=== PATIENT | male | born 1980 | race Caucasian/White ===

== ENCOUNTER 2020-07-18 16:58 | Emergency (ER) | payer SELFPAY ==
[2020-07-18 17:09] VITALS: BP 126/81; PULSE 108; RESP 22; TEMP 37.7; O2SAT 97; BMI 58.8
--- NOTE | 2020-07-18 17:13 | XR_ITS ---
EXAMINATION: CHEST 1 VIEW CLINICAL INFORMATION: Cough and fever. COMPARISON: January 07, 2019. TECHNIQUE: An AP view of the chest is provided. FINDINGS: The cardiac silhouette is not enlarged. The mediastinal and hilar contours are unremarkable. There are neither pleural effusions nor pneumothoraces. There are no consolidations. The osseous structures are stable. XR/XR chest 1V IMPRESSION: No evidence for acute disease.
--- NOTE | 2020-07-18 17:13 | CT_ITS ---
EXAMINATIONS: CT HEAD WITHOUT CONTRAST AND CT CERVICAL SPINE WITHOUT CONTRAST CLINICAL INFORMATION: Drug overdose. Trauma. COMPARISON: July 14, 2019. TECHNIQUE: Contiguous helical images of the brain were obtained without IV contrast. Contiguous helical images of the cervical spine were obtained without IV contrast. Multiplanar reconstructions were performed. DLP: 1285 mGy-cm. FINDINGS: There are no pathologic extra-axial fluid collections. The lateral, third, fourth ventricles are nondilated and concordant with the appearance of the sulci. There is no evidence for acute intraparenchymal hemorrhage or infarct. There is neither mass nor mass effect. There is no shift of midline structures. The paranasal sinuses and mastoid air cells are clear. There are no osseous lesions. The cervical vertebra are in normal alignment. Disc heights and vertebral heights are well-preserved. There are no fractures. There is no prevertebral soft tissue swelling. There is no cervical lymphadenopathy. The visualized lung apices are clear. CT/CT cervical spine wo con IMPRESSION: No evidence for acute intracranial injury. No evidence for acute injury to the cervical spine. Automated exposure control (Care Dose) Adjustment of the mA and/or kv according to patient size (this includes techniques or standardized protocols for targeted exams where dose is matched to indication / reason for exam; i.e. extremities or head).
[2020-07-18 19:48] LABS: SARS COV2 PCR INHOUSE NEGATIVE (Negative)
[2020-07-18 20:05] VITALS: BP 129/60; PULSE 106; RESP 25; O2SAT 93
--- NOTE | 2020-07-18 20:51 | PC.NURSE ---
patient woken up and changed over into a kelsie. patient diaphoretic and complaining of right knee pain. knee appears swollen and warm to touch. patient also has an abrasion of his right forehead. temp 100.1. md made aware. patient given small snack. respiratory rate equal and unlabored.
--- NOTE | 2020-07-18 21:10 | XR_ITS ---
EXAMINATION: XR KNEE, LEFT CLINICAL INFORMATION: Fall and pain. COMPARISON: None TECHNIQUE: Four views of the left knee. FINDINGS: There is mild loss of tricompartment joint space with periarticular spurring. There are no loose body seen. There is no bony erosive changes. There is mild suprapatellar joint effusion. XR/XR knee LT 4V IMPRESSION: Moderate to severe degenerative changes in the left knee without acute fracture or dislocation.
--- NOTE | 2020-07-18 21:17 | ED_ITS ---
HPI - Overdose General Chief Complaint: Overdose <Jagruti Yuan MD - Last Filed: 07/18/20 23:41> Stated Complaint: overdose <Jagruti Yuan MD - Last Filed: 07/18/20 23:41> Time Seen by Provider: 07/18/20 17:13 <Jagruti Yuan MD - Last Filed: 07/18/20 23:41> Source: patient <Jagruti Yuan MD - Last Filed: 07/18/20 23:41> Mode of arrival: EMS <Jagruti Yuan MD - Last Filed: 07/18/20 23:41> Limitations: no limitations <Jagruti Yuan MD - Last Filed: 07/18/20 23:41> History of Present Illness HPI Narrative: 39-year-old male who admitted to use 3 bags of heroin today, patient fell and witnessed by bystander patient was given total of 12 mg of Narcan patient started to regain consciousness. Patient was witnessed falling hitting his head complaining of slight headache and neck pain and left knee pain, patient also found have low-grade fever but patient declined any other symptoms, no SI or HI. Patient admitted using heroin to get high. <Jagruti Yuan MD - Last Filed: 07/18/20 23:41> complaint: accidental overdose <Jagruti Yuan MD - Last Filed: 07/18/20 23:41> Onset (ago): hour(s) (2) <Jagruti Yuan MD - Last Filed: 07/18/20 23:41> Related Data Allergies/Adverse Reactions: Allergies Allergy/AdvReac Type Severity Reaction Status Date / Time No Known Drug Allergies Allergy Mild NONE Unverified 06/13/20 15:37 [NO KNOWN DRUG ALLERGIES] <Jagruti Yuan MD - Last Filed: 07/18/20 23:41> Review of Systems Review of Systems: all other systems are reviewed and are negative Constitutional: Reports as per HPI and Reports no additional constitutional complaints Eyes: Reports as per HPI and Reports no additional eye complaints Reports system reviewed and no additional complaints, except as documented Cardiovascular: Reports as per HPI and Reports no additional cardiovascular complaints Respiratory: Reports as per HPI and Reports no additional respiratory complaints Gastrointestinal: Reports as per HPI and Reports no additional gastrointestinal complaints Genitourinary: Reports no additional female genitourinary complaints Musculoskeletal: Reports no additional musculoskeletal complaints Skin/Breast: Reports system reviewed and no additional complaints, except as docu Psychiatric: Reports no additional psychiatric complaints Endocrine: Reports no additional endocrine complaints Hematologic/Lymphatic: Reports no additional hematologic/lymphatic complaints Allergic/Immunologic: Reports no additional allergic/immunologic complaints Reports system reviewed and no additional complaints, except as documented and Reports Abnormal speech present <Jagruti Yuan MD - Last Filed: 07/18/20 23:41> [facility] Social History Social History: Social History Alcohol intake: never Smoking Status: Current every day smoker Smoked in Last 30 Days: No Use of substances other than those prescribed or required for medical reasons: Yes Substance Use Type: Heroin Substance Use Frequency: Daily Last Used Substance: Just Prior to Admission Any prior treatment program specific to substance use: No Advance Directives: No Advance Directives Information Provided: No <Jagruti Yuan MD - Last Filed: 07/18/20 23:41> Physical Exam Vital Signs: Vital Signs: Vital Signs Temp Pulse Resp BP Pulse Ox 07/19/20 09:06 78 18 129/54 L 98 07/19/20 06:43 97.0 F 78 17 91/44 L 97 07/18/20 22:00 88 10 L 103/58 L 98 07/18/20 20:05 106 H 25 H 129/60 93 Body Mass Index 58.8 vital signs have been reviewed as normal and appeared to be correct. Blood pressure normal. tachycardia. Respiration rate normal. Temperature normal. Oxygen saturation normal. <Jagruti Yuan MD - Last Filed: 07/18/20 23:41> Vital Signs: Vital Signs Temp Pulse Resp BP Pulse Ox 07/19/20 09:06 78 18 129/54 L 98 07/19/20 06:43 97.0 F 78 17 91/44 L 97 07/18/20 22:00 88 10 L 103/58 L 98 07/18/20 20:05 106 H 25 H 129/60 93 Body Mass Index 58.8 <BRIAN Villafuerte - Last Filed: 07/19/20 17:57> Appearance: Alert. Oriented X3. No acute distress. Head: Normal external exam. small superficial abrasion on the forehead. No Boo signs noted. No raccoon eyes noted Eyes: PERRLA. EOMI. Conjunctiva and sclera normal. Eyelids normal. ENT: EAC normal. TM's Normal. Pharynx normal. Uvula midline. Moist mucous membranes. No trismus noted. No drooling noted. No muffled voice noted. Neck: Normal inspection. Neck supple. FROM. No adenopathy. Thyroid Normal. No meningeal signs. No neck mass noted. CVS: Normal heart rate and rhythm. Heart sound normal. No murmurs noted. Pulses normal throughout. Respiratory: No respiratory distress. Painless inspiration. Breath sounds normal. No wheezes/rales/rhonchi noted. Chest nontender. No accessory muscle usage noted or decreased air movement noted. Abdomen: Soft and nontender. Bowel sounds normal in all 4 quadrants. No distention noted. No organomegaly noted. No visible injury noted. Back: No CVA tenderness. Full range of motion noted. Skin: Skin warm and dry. Normal skin color. Normal skin turgor. No rashes/lesions/lacerations noted. Extremities: No lower extremity edema. Extremities exhibit normal range of motion. Extremities nontender. Neuro: Oriented X 3. No motor deficit. No sensory deficit. Reflexes normal. GCS of 15 <Jagruti Yuan MD - Last Filed: 07/18/20 23:41> Course Course Course Narrative: accidental overdose on heroin, with mechanical fall, require multiple doses of Narcan at the scene, now is awake with stable vital sign, complained of head and neck and right knee pain, patient found to have low-grade fever but no other complain will test for COVID. <Jagruti Yuan MD - Last Filed: 07/18/20 23:41> Patient is awaiting [facility] evaluation. Patient is not in any distress. <BRIAN Villafuerte - Last Filed: 07/19/20 17:57> MDM - Overdose MDM Narrative Medical decision making narrative: 39-year-old male with incidental overdose of heroin found in the street after he had a mechanical fall, Head/C-spine CT are unremarkable. Right knee x-ray is unremarkable, no symptoms explain low-grade fever of the patient with negative COVID test. Will discharge the patient. <Jagruti Yuan MD - Last Filed: 07/18/20 23:41> Lab Data Labs: Lab Results 07/18/20 07/19/20 Range/Units 18:37 02:19 Urine Opiates Screen POSITIVE H (Not Detect) Ur Barbiturates Screen Not Detected (Not Detect) Ur Phencyclidine Scrn Not Detected (Not Detect) Ur Amphetamines Screen Not Detected (Not Detect) U Benzodiazepines Scrn Not Detected (Not Detect) Urine Cocaine Screen POSITIVE H (Not Detect) U Marijuana (THC) Screen POSITIVE H (Not Detect) Coronavirus (PCR) NEGATIVE (Negative) <Jagruti Yuan MD - Last Filed: 07/18/20 23:41> Lab Results 07/18/20 07/19/20 Range/Units 18:37 02:19 Urine Opiates Screen POSITIVE H (Not Detect) Ur Barbiturates Screen Not Detected (Not Detect) Ur Phencyclidine Scrn Not Detected (Not Detect) Ur Amphetamines Screen Not Detected (Not Detect) U Benzodiazepines Scrn Not Detected (Not Detect) Urine Cocaine Screen POSITIVE H (Not Detect) U Marijuana (THC) Screen POSITIVE H (Not Detect) Coronavirus (PCR) NEGATIVE (Negative) <BRIAN Villafuerte - Last Filed: 07/19/20 17:57> Imaging Data left knee x-ray: Radiologist's impression: Moderate to severe degenerative changes in the left knee without acute fracture or dislocation. <Jagruti Yuan MD - Last Filed: 07/18/20 23:41> CT head/ CT C-spine: Radiologist's impression: No evidence for acute intracranial injury. No evidence for acute injury to the cervical spine. <Jagruti Yuan MD - Last Filed: 07/18/20 23:41> Chest x-ray: Radiologist's impression: No evidence for acute disease. <Jagruti Yuan MD - Last Filed: 07/18/20 23:41> Discharge Plan Discharge Clinical Impression: Drug overdose Qualifiers: Encounter type: initial encounter Injury intent: accidental or unintentional Qualified Code(s): T50.901A - Poisoning by unspecified drugs, medicaments and biological substances, accidental (unintentional), initial encounter Contusion of knee Qualifiers: Encounter type: initial encounter Laterality: left Qualified Code(s): S80.02XA - Contusion of left knee, initial encounter Head injury Qualifiers: Encounter type: initial encounter Qualified Code(s): S09.90XA - Unspecified injury of head, initial encounter <Jagruti Yuan MD - Last Filed: 07/18/20 23:41> Patient Disposition: Home, Self-Care <Jagruti Yuan MD - Last Filed: 07/18/20 23:41> Instructions: Head Injury (ED), Adult Overdose (ED) <Jagruti Yuan MD - Last Filed: 07/18/20 23:41> Referrals: Physician,Unknown [Primary Care Provider] - 2 days <Jagruti Yuan MD - Last Filed: 07/18/20 23:41>
[2020-07-18] MEDS: Acetaminophen 325 MG TABLET 650 MG PO (21:29)
[2020-07-18 22:00] VITALS: BP 103/58; PULSE 88; RESP 10; O2SAT 98
[2020-07-19] MEDS: Ibuprofen 600 MG TABLET PO (02:24)
[2020-07-19 02:59] LABS: Amphetamine Screen Urine Not Detected (Not Detect); Barbiturates, Urine Not Detected (Not Detect); Benzodiazepines Screen Urine Not Detected (Not Detect); Cannabinoid Screen Urine POSITIVE (Not Detect); Cocaine Screen Urine POSITIVE (Not Detect); Opiate Screen Urine POSITIVE (Not Detect); Phencyclidine Screen Urine Not Detected (Not Detect)
[2020-07-19 06:43] VITALS: BP 91/44; PULSE 78; RESP 17; TEMP 36.1; O2SAT 97
--- NOTE | 2020-07-19 07:01 | PC.NURSE ---
pt sitting up in bed, asking this rn to change channel for him, asking for pudding. pt offered breakfast tray instead. eating at bedside table.
[2020-07-19 09:06] VITALS: BP 129/54; PULSE 78; RESP 18; O2SAT 98
--- NOTE | 2020-07-19 10:42 | MHC.CARE ---
Addiction Consult Service note: Patient is a 39 year old Filipino speaking male who presented to [facility] ED after an accidental overdose. While in the Emergency Department, patient reported SI. Patient is currently awaiting a [facility] evaluation. Patient is currently uninsured and homeless. Patient reports that he is knowledgeable regarding community resources. Patient reports he has Methadone and Suboxone don't work for him. Patient reports his homelessness is his biggest problem at this time. Patient provided with information on financial counseling at [facility] and [facility] for patient to re-enroll in [facility]. Patient also provided with information on [facility] for housing support.
--- NOTE | 2020-07-19 12:50 | PC.NURSE ---
resting in bed watching tv att, rr even/unlabored. given lunch tray
--- NOTE | 2020-07-19 19:32 | PC.NURSE ---
PT asked about medication history. Stated that he left detention 3 weeks ago, where he was receiving his medications. Since his release he has not been to a pharmacy for medications. [facility] was contacted for med rec.
[2020-07-19] MEDS: Mirtazapine 15 MG TABLET 45 MG PO (20:44)
[2020-07-19] MEDS: levETIRAcetam 1,000 MG TABLET 1000 MG PO (20:45)
--- NOTE | 2020-07-20 07:15 | PC.NURSE ---
Report received from jose cruz Garcia. Pt awake, affect even, no concerns reported.
[2020-07-20 09:22] VITALS: BP 113/50; PULSE 60; RESP 16; TEMP 36.9; O2SAT 98
--- NOTE | 2020-07-20 13:25 | PC.NURSE ---
REEVAL BY N, PLAN IS FOR PT TO CONTINUE TO BE A BEDSEARCH. NEW SEC12 WRITTEN OUT BUT NOT SIGNED AND DATED IF NEEDED.
[2020-07-20 15:57] VITALS: BP 115/64; PULSE 68; RESP 20; TEMP 20; O2SAT 96
--- NOTE | 2020-07-20 17:31 | PC.NURSE ---
Pt awake, asking re: discharge due to LOS. pt aware that he will need re-evaluation by hospital recruiter. Pt affect even, pleasant.
--- NOTE | 2020-07-20 19:31 | PC.NURSE ---
Patient in bed appears sleeping, no distress reported by the patient, per report patient calm and pleasant, not happy with long wait here in ED, process made aware to the patient, respiration +/=/non-labored bilaterally. Will continue to monitor.
[2020-07-20] MEDS: levETIRAcetam 1,000 MG TABLET 1000 MG PO (21:52)
[2020-07-20] MEDS: Mirtazapine 15 MG TABLET 45 MG PO (21:54)
--- NOTE | 2020-07-20 22:15 | PC.NURSE ---
Patient in bed, awake, lying on side, with TV blaring, compliant with HS PO medication even Mirtazapine which patient refused last night. No distress reported by the patient, will continue to monitor.
--- NOTE | 2020-07-21 07:20 | PC.NURSE ---
Report received from MICHAEL Garcia. Pt resting, resp unlabored.
--- NOTE | 2020-07-21 09:29 | PC.NURSE ---
Discovered full urinal in pt room, as well as two water containers filled w/ urine. Pt has hx of doing the same in past. when asked, pt stated 'i was in so much pain' but unclear why he was unable to ambulate to bathroom, as he has been observed ambulating around pod. Asked pt to please use bathroom, or inform staff if he feels unable to do so.
[2020-07-21 17:05] VITALS: BP 131/77; PULSE 69; RESP 18; TEMP 36.4; O2SAT 96
[2020-07-21] MEDS: levETIRAcetam 1,000 MG TABLET 1000 MG PO (20:04)
[2020-07-21] MEDS: Mirtazapine 15 MG TABLET 45 MG PO (20:04)
--- NOTE | 2020-07-22 06:13 | PC.NURSE ---
Patient in bed appears sleeping, patient slept through the night, no issues and concerns, no distress reported, will continue to monitor.
[2020-07-22 06:32] VITALS: BP 122/67; PULSE 71; RESP 16; TEMP 36.9; O2SAT 97
--- NOTE | 2020-07-22 07:12 | PC.NURSE ---
PT SLEEPING IN ROOM AT THIS TIME. RESPIRATIONS EVEN/UNLABORED BILATERALLY. NO SIGN OF DISTRESS NOTED. WILL CONTINUE TO MONITOR.
[2020-07-22 09:11] VITALS: BP 132/79; PULSE 70; TEMP 36.9; O2SAT 99
== END 2020-07-22 11:22 | disposition home or self-care (01) ==
PROVIDERS: Emergency Provider Emergency Medicine
DX: S09.90XA Unspecified injury of head, initial encounter (principal); G44.309 Post-traumatic headache, unspecified, not intractable; M25.562 Pain in left knee; M25.561 Pain in right knee; S80.02XA Contusion of left knee, initial encounter; S80.01XA Contusion of right knee, initial encounter; F11.10 Opioid abuse, uncomplicated; T40.1X1A Poisoning by heroin, accidental (unintentional), initial encounter; Y92.9 Unspecified place or not applicable; Z71.51 Drug abuse counseling and surveillance of drug abuser; F17.200 Nicotine dependence, unspecified, uncomplicated; Z71.6 Tobacco abuse counseling; W18.30XA Fall on same level, unspecified, initial encounter; Y93.9 Activity, unspecified; Z20.828 Contact with and (suspected) exposure to other viral communicable diseases; Z79.899 Other long term (current) drug therapy
CPT/HCPCS: 70450; 71045; 72125; 73564; 80307; 87635; 99285

== ENCOUNTER 2021-07-27 03:49 | Emergency (ER) | payer MEDICAID, SELFPAY ==
--- NOTE | ~2021-07-27 | XR_ITS ---
EXAMINATION: XR CHEST CLINICAL INFORMATION: Trauma COMPARISON: 07/18/2020 TECHNIQUE: Frontal view of the chest was obtained. FINDINGS: The lungs are mildly hypoinflated and appear clear without focal consolidation. No evidence of pneumothorax, pleural effusion, or pulmonary edema. The cardiomediastinal contour is unremarkable. Degenerative changes are noted in the spine. XR/XR chest 1V IMPRESSION: No acute cardiopulmonary findings.
--- NOTE | ~2021-07-27 | XR_ITS ---
EXAMINATION: CR LEFT HAND CLINICAL INFORMATION: Pain. Trauma. COMPARISON: None TECHNIQUE: 4 views of the left hand. FINDINGS: Mild soft tissue swelling is seen over the dorsum of the wrist/fifth metacarpal base. No acute fracture or dislocation is seen. No radiopaque foreign body is noted. 2 mm of negative ulnar variance is noted. XR/XR hand wrist LT IMPRESSION: Mild soft tissue swelling over the dorsum of the wrist and fifth metacarpal base. No acute fracture or dislocation.
--- NOTE | ~2021-07-27 | CT_ITS ---
EXAMINATION: NONCONTRAST HEAD CT NONCONTRAST CERVICAL SPINE CT INDICATION INFORMATION: Trauma COMPARISON: 07/18/2020 TECHNIQUE: Separate noncontrast CT examinations of the head and cervical spine were performed. Coronal head CT images and coronal and sagittal cervical spine images were created at the technologist workstation. DLP: 1802 mGy-cm DOSE LOWERING TECHNIQUES: This CT examination was performed using dose optimization techniques as appropriate, variously including the following: - Automated exposure control - Adjustment of mA and/or kV according to patient size (this includes techniques or standardized protocols for targeted exams were dose is matched to indication/reason for exam; i.e. extremities or head) - Use of iterative reconstruction technique FINDINGS: Head: Limited evaluation in some regions due to motion artifact. There is no evidence of acute intracranial hemorrhage or territorial infarction. No abnormal mass-effect or midline shift is seen. Ibanez to white matter differentiation is well preserved. No extra-axial fluid collections are identified. The ventricles are normal in size. There is no abnormal attenuation within the brain parenchyma. No acute fracture is seen. There is some inferior frontal scalp soft tissue swelling. There is moderate opacification of the bilateral maxillary sinuses and ethmoid air cells. Cervical spine: There is anatomic alignment of the vertebral bodies and posterior elements. Vertebral body heights are maintained. Intervertebral disc spaces are preserved. No evidence of acute fracture. No prevertebral soft tissue swelling. Visualized portions of the lung apices are unremarkable. The thyroid gland is unremarkable. CT/CT head/brain wo con IMPRESSION: No acute findings identified in the head or cervical spine.
--- NOTE | ~2021-07-27 | CT_ITS ---
EXAMINATION: NONCONTRAST HEAD CT NONCONTRAST CERVICAL SPINE CT INDICATION INFORMATION: Trauma COMPARISON: 07/18/2020 TECHNIQUE: Separate noncontrast CT examinations of the head and cervical spine were performed. Coronal head CT images and coronal and sagittal cervical spine images were created at the technologist workstation. DLP: 1802 mGy-cm DOSE LOWERING TECHNIQUES: This CT examination was performed using dose optimization techniques as appropriate, variously including the following: - Automated exposure control - Adjustment of mA and/or kV according to patient size (this includes techniques or standardized protocols for targeted exams were dose is matched to indication/reason for exam; i.e. extremities or head) - Use of iterative reconstruction technique FINDINGS: Head: Limited evaluation in some regions due to motion artifact. There is no evidence of acute intracranial hemorrhage or territorial infarction. No abnormal mass-effect or midline shift is seen. Ibanez to white matter differentiation is well preserved. No extra-axial fluid collections are identified. The ventricles are normal in size. There is no abnormal attenuation within the brain parenchyma. No acute fracture is seen. There is some inferior frontal scalp soft tissue swelling. There is moderate opacification of the bilateral maxillary sinuses and ethmoid air cells. Cervical spine: There is anatomic alignment of the vertebral bodies and posterior elements. Vertebral body heights are maintained. Intervertebral disc spaces are preserved. No evidence of acute fracture. No prevertebral soft tissue swelling. Visualized portions of the lung apices are unremarkable. The thyroid gland is unremarkable. CT/CT cervical spine wo con IMPRESSION: No acute findings identified in the head or cervical spine.
--- NOTE | ~2021-07-27 | CT_ITS ---
EXAMINATION: CONTRAST-ENHANCED CT OF THE CHEST; CONTRAST-ENHANCED CT OF THE ABDOMEN AND PELVIS INDICATION: Trauma COMPARISON: 09/07/2012 TECHNIQUE: 100 mL Omnipaque 350 IV contrast was utilized. Multidetector helical imaging was performed through the chest, abdomen, and pelvis. Coronal and sagittal reformatted images were created at the technologist workstation. DLP: 3228 mGy-cm DOSE LOWERING TECHNIQUES: This CT examination was performed using dose optimization techniques as appropriate, variously including the following: - Automated exposure control - Adjustment of mA and/or kV according to patient size (this includes techniques or standardized protocols for targeted exams were dose is matched to indication/reason for exam; i.e. extremities or head) - Use of iterative reconstruction technique FINDINGS: Chest: Limited detailed evaluation in some regions of the lungs due to respiratory motion artifact. No regions of consolidation bilaterally. Calcified granuloma is noted in the posterior left lower lobe. No pneumothorax or pleural effusion. Visualized thyroid gland appears unremarkable. There are subcentimeter mediastinal lymph nodes within the range of normal variation. Cardiac size is within normal limits; no pericardial effusion. The aorta is unremarkable. No axillary lymphadenopathy is present. Abdomen/Pelvis: The liver is homogeneous in attenuation without intrahepatic biliary ductal dilatation. The gallbladder is unremarkable. The spleen, pancreas, and adrenal glands are within normal limits. Bilateral nephrograms are symmetric. No hydronephrosis. No obstructing renal or ureteral calculi are present. The urinary bladder is unremarkable. The prostate and seminal vesicles are unremarkable. Small fat-containing umbilical hernia is noted. The small and large bowel are unremarkable without evidence of obstruction or pericolonic inflammatory change. The appendix is unremarkable. No free fluid or free air is identified. The vascular structures are unremarkable. No retroperitoneal or pelvic lymphadenopathy is seen. No acute osseous findings. Degenerative changes are noted in the spine. CT/CT abdomen pelvis w con IMPRESSION: No acute traumatic findings identified in the chest, abdomen, or pelvis.
--- NOTE | 2021-07-27 03:58 | ECG_ITS ---
Test Reason : trauma Blood Pressure : / mmHG Vent. Rate : 102 BPM Atrial Rate : 102 BPM P-R Int : 156 ms QRS Dur : 094 ms QT Int : 340 ms P-R-T Axes : 077 046 060 degrees QTc Int : 443 ms Sinus tachycardia Otherwise normal ECG No significant changes seen Referred By: Bri Pascal Electronically Signed By:ALAN FONG MD
[2021-07-27 04:04] VITALS: BP 128/67; PULSE 95; RESP 12; O2SAT 97; BMI 43.8
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
[2021-07-27] MEDS: Ketorolac Tromethamine 15 MG/ML VIAL IVPUSH (04:32)
[2021-07-27] MEDS: fentaNYL citrate/PF 100 MCG/2 ML VIAL 25 MCG IVPUSH (04:33)
[2021-07-27 04:34] LABS: MANUAL DIFF FLAG NO
[2021-07-27 04:37] LABS: Basophils Percent Auto 0.2 % (0-2); Eosinophils Absolute Auto 0.2 X10*3/uL (0.0-0.4); Eosinophils Percent Auto 2.6 % (0-4); Hematocrit 41.4 % (42.0-52.0); Hemoglobin 13.8 g/dl (14.0-18.0); Imm Gran Abs Auto 0.03 X10*3/uL (0.00-0.03); Imm Gran Pct Auto 0.3 % (0.0-0.4); Lymphocytes Absolute Auto 1.5 X10*3/uL (1.2-4.9); Lymphocytes Percent Auto 16.4 % (20-40); Mean Corpuscular HGB Conc 33.3 g/dl (31.0-36.0); Mean Corpuscular Hemoglobin 28.3 pg (27.0-33.0); Mean Corpuscular Volume 84.8 fL (80.0-98.0); Mean Platelet Volume 10.3 fL (9.4-12.4); Monocytes Absolute Auto 0.4 X10*3/uL (0.1-1.2); Monocytes Percent Auto 4.3 % (2-11); Neutrophils Absolute Auto 6.89 x10*3/uL (2.0-8.3); Neutrophils Percent Auto 76.2 % (45-73); Platelet Count 318 X10*3/uL (160-400); Red Blood Count 4.88 X10*6/uL (4.60-5.80); Red Cell Distribution Width 13.9 % (11.0-16.0); White Blood Count 9.1 X10*3/uL (4.8-10.8)
[2021-07-27 04:41] VITALS: PULSE 90
[2021-07-27 04:44] LABS: INTERNATIONAL NORM RATIO 1.1 (0.9-1.1); Prothrombin Time 12.4 SEC (9.9-13.0)
[2021-07-27 04:47] LABS: Ethanol < 10 mg/dL
[2021-07-27 04:52] LABS: Alanine Aminotransferase 18 U/L (0-40); Albumin Level 4.2 g/dL (3.5-5.0); Alkaline Phosphatase 122 U/L (39-117); Anion Gap 20 (12-20); Aspartate Amino Transferase 26 U/L (5-37); Bilirubin Total 0.4 mg/dL (0.0-1.0); Blood Urea Nitrogen 12 mg/dL (9-16); Calcium 9.6 mg/dL (8.4-10.2); Carbon Dioxide 20 mmol/L (22-29); Chloride 103 mmol/L (96-108); Creatinine Clr Calc Pharmacy 149.9; Estimated Glomerular Filt Rate > 60; Glucose Random 100 mg/dL (60-115); Lactic Acid 4.2 mmol/L (0.5-2.0); Lipase 17 U/L (8-78); Potassium 3.9 mmol/L (3.3-5.1); Sodium 139 mmol/L (135-145); Total Protein 8.1 g/dL (6.5-8.0)
--- NOTE | 2021-07-27 05:01 | PC.NURSE ---
Blood Bank called for second tube of blood for type and screen confirmation.'Pt is a very difficult stick' Speaking with research laboratory technician Jarrod who stated patient does not need additional tube if no blood was ordered or needed.Discussed plan of care with provider,No blood products needed.Lab Notified and RN aware.
[2021-07-27 05:14] LABS: Appearance Urine CLEAR; Color Urine YELLOW; Glucose Urine UA NEG (NEG); Leukocyte Esterase Urine NEG (NEG); Nitrite Urine NEG (NEG); Specific Gravity - Urine >= 1.030 (1.005-1.025); UACC Culture Trigger NO; Urine Blood NEG (NEG); Urine Ketones NEG (NEG); Urine Protein 3+ MG/DL (NEG-TRACE)
[2021-07-27 05:22] LABS: Bacteria Urine 2+ /LPF; Mucus Urine 2+ /LPF; Squamous Epithelial Cell Urine 1+ /LPF
[2021-07-27 05:22] LABS: Troponin-I High Sensitivity < 3.5 ng/L (<3.5-35.0)
[2021-07-27 05:30] VITALS: RESP 20
[2021-07-27 05:30] LABS: Amphetamine Screen Urine Not Detected (Not Detect); Barbiturates, Urine Not Detected (Not Detect); Benzodiazepines Screen Urine Not Detected (Not Detect); Cannabinoid Screen Urine POSITIVE (Not Detect); Cocaine Screen Urine POSITIVE (Not Detect); Fentanyl, urine POSITIVE (Not Detect); Opiate Screen Urine POSITIVE (Not Detect); Phencyclidine Screen Urine Not Detected (Not Detect)
[2021-07-27] MEDS: fentaNYL citrate/PF 100 MCG/2 ML VIAL 50 MCG IVPUSH (05:30)
[2021-07-27] MEDS: iohexoL 350 MG/ML 100 ML INFUS..BTL IV (06:00)
[2021-07-27 06:19] VITALS: BP 104/68; PULSE 82; RESP 18
[2021-07-27 06:33] LABS: Reflex Lactate? Lactic Acid Added
[2021-07-27 06:37] LABS: COVID-19 Test Negative (Negative); IDNOW Serial# 9DD0AD1C
[2021-07-27] MEDS: Diphth,Pertus(ACell),Tet Adult 0.5 ML SYRINGE IM (06:45)
[2021-07-27] MEDS: 0.9 % Sodium Chloride 1,000 ML 999 ML IV (07:07)
[2021-07-27 07:21] LABS: ~Lactic Acid-LAB USE ONLY 1.8 mmol/L (0.5-2.0)
== END 2021-07-27 08:12 | disposition short-term general hospital (02) ==
PROVIDERS: Emergency Provider Student in an Organized Health Care Education/Training Program
DX: S22.061A Stable burst fracture of T7-T8 vertebra, initial encounter for closed fracture (principal); S01.81XA Laceration without foreign body of other part of head, initial encounter; V03.19XA Pedestrian with other conveyance injured in collision with car, pick-up truck or van in traffic accident, initial encounter; E87.2 Acidosis; F11.90 Opioid use, unspecified, uncomplicated; F12.90 Cannabis use, unspecified, uncomplicated; F14.90 Cocaine use, unspecified, uncomplicated; Y93.55 Activity, bike riding; Y92.414 Local residential or business street as the place of occurrence of the external cause; Y99.9 Unspecified external cause status; Z20.822 Contact with and (suspected) exposure to COVID-19
CPT/HCPCS: 36415; 70450; 71045; 71260; 72125; 73110; 73130; 74177; 80053; 80307; 81001; 82077; 83605; 83690; 84484; 85025; 85610; 86850; 86900; 86901; 87635; 90471; 90715; 93005; 96361; 96374; 96375; 96376; 99285; J1885; J3010; Q9967

== ENCOUNTER 2025-08-18 14:57 | Emergency (ER) | payer OTHER, SELFPAY ==
--- NOTE | ~2025-08-18 | XR_ITS ---
CLINICAL HISTORY: Fall, left-sided chest pain, rule out fracture, --- Additional Notes or Special Instructions: Pneumothorax Single view of the chest. COMPARISON: None provided. FINDINGS: Normal heart and mediastinal contours. No consolidation. No pleural effusion or pneumothorax. Mild spondylosis. No acute fracture. IMPRESSION: 1. No acute findings. No pneumothorax. This document has been electronically signed by: Constantin Graf MD on 08/18/2025 16:48:52
--- NOTE | ~2025-08-18 | CT_ITS ---
CLINICAL HISTORY: Seizure, head strike, R O fracture CT head without contrast. COMPARISON: None provided. FINDINGS: Mucosal retention cyst present within the right maxillary sinus. Mastoid air cells are clear. No calvarial fracture. No evidence for mass or mass effect. No intracranial hemorrhage or abnormal extra-axial fluid collection. No evidence of hydrocephalus. The basilar cisterns are patent. Posterior fossa appears unremarkable. IMPRESSION: 1. No acute intracranial findings. This document has been electronically signed by: Constantin Graf MD on 08/18/2025 16:04:53
[2025-08-18 15:04] VITALS: BP 162/98; PULSE 107; RESP 22; O2SAT 98
[2025-08-18 15:05] VITALS: BP 162/98; PULSE 105; RESP 20; TEMP 37; O2SAT 95; BMI 52.0
--- NOTE | 2025-08-18 15:12 | ED_ITS ---
HPI - Seizure General Chief Complaint: Seizure Stated Complaint: Syncope Time Seen by Provider: 08/18/25 15:11 Source: patient Mode of arrival: other (Stretcher from [facility]) Limitations: no limitations History of Present Illness ED Provider: Dr. 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 Patient received all of his medications yesterday in the alf prior to being discharged. Patient went to [facility] his medications but did not have an ID and the pharmacy would not give him his Suboxone. Patient did get his Keppra 1000 mg dose and took the medication about 1 hour prior to coming to the emergency department. He states that he took the bus to the hospital and the bus stopped at the bottom of the heel at the [facility] entrance and did not come up the hill to the ED and drinks. The patient walked into the [facility] and told a armed security officer that he is going to have a seizure and that he was having an aura. The patient then had a brief loss of consciousness, fell forward and struck his head on the floor. He states he also struck his left chest. He states that he has tonic-clonic seizures and small seizures where he only passes out briefly and does not have a postictal period. The armed security officer called a code assist and the patient was placed on a stretcher and brought to the emergency department for evaluation. At the time my evaluation he is complaining of forehead pain secondary to his fall. He is also complaining of left-sided chest wall pain. He also is complaining of withdrawal symptoms. Related Data Previous Rx's ?Medication ?Instructions ?Recorded acetaminophen 500 mg tablet 1,000 mg (2 x 500 mg) PO Q 6H PRN 08/18/25 (Tylenol Extra Strength) fever or pain #20 tabs ibuprofen 400 mg tablet 400 mg PO TID PRN fever or p ain 08/18/25 #30 tabs lidocaine 4 % topical patch 1 patch topical DAILY PRN Left rib 08/18/25 contusion #15 ea Allergies Allergy/AdvReac Type Severity Reaction Status Date / Time No Known Drug Allergies (NO Allergy Mild NONE Verified 08/18/25 15:10 KNOWN DRUG ALLERGIES) Review of Systems Review of Systems: Yes all other systems are reviewed and are negative [facility] Past Medical History [facility] Narrative: Social history: He does smoke cigarettes. He states he did drink 1 alcoholic beverage yesterday. He denies drug use. He states that he did abuse oxycodone in the past but he has been in remission since he has been on Suboxone. Social History Social History (System 07/14/22 @ 14:13 by Aliya Montero) Alcohol intake: unknown Patient Tobacco Use Status: Tobacco use Unknown Substance Use Type: Heroin Advance Directives: No Advance Directives Information Provided: No Physical Exam Vital Signs: Vital Signs: Last Vital Signs Temp 98.6 F 08/18/25 15:05 Pulse 105 H 08/18/25 15:05 Resp 20 08/18/25 15:05 BP 162/98 H 08/18/25 15:05 Pulse Ox 95 08/18/25 15:05 O2 Del Method Room Air 08/18/25 15:05 BMI result Body Mass Index 52.0 Vital signs revealed an elevated heart rate of 105 and an elevated blood pressure of 162/98. Exam: General: Awake, alert in no distress. Patient's weight was 188.7 kg, BMI was e levated at 52.0 kilograms/meters squared Head: Normocephalic, tenderness palpation of the left forehead with no obvious hematoma or ecchymosis EENT: PERRL, sclera and conjunctiva are normal, mouth with no erythema or exudates Neck: Supple, no adenopathy Lung: breath sounds symmetric, no wheezing, no rales and no rhonchi Chest: Left chest wall tenderness, no ecchymosis, no crepitus Heart: regular rate and rhythm, normal S1, S2 no murmurs or rubs Abdomen: soft, non-tender, nondistended, normal bowel sounds Back: no vertebral tenderness, no CVAT Extremities: no deformities, moves all extremities symmetrically, no edema Neuro: Awake, alert, oriented, normal speech, cranial nerves 2-12 intact, moves all extremities symmetrically Psych: Pleasant, cooperative Medications Administered Discontinued Medications Generic Name Dose Route Start Last Admin Trade Name Freq PRN Reason Stop Dose Admin Buprenorphine/Naloxone 1 film 08/18/25 15:12 08/18/25 15:23 Buprenorphine/Naloxone 8/2 Mg Film SUBLINGUAL 08/18/25 15:13 1 film ONCE ONE Administration Buprenorphine/Naloxone 1 tab 08/18/25 15:28 08/18/25 15:33 Buprenorphine/Naloxone 8/2 Mg Tab.Subl SUBLINGUAL 08/18/25 15:29 1 tab ONCE ONE Administration Ibuprofen 400 mg 08/18/25 15:19 08/18/25 15:23 Ibuprofen 400 Mg Tablet PO 08/18/25 15:20 400 mg ONCE STA Administration Medical Decision Making Medical Decision Making MDM Narrative: 44-year-old male with a history of seizure disorder on Keppra, oxycodone use disorder-in remission on Suboxone 16 mg/2 mg sublingually daily who was incarcerated for 14 months, released yesterday who had a seizure in the hospital [facility]. Patient received all of his medications yesterday in the alf prior to being discharged. Patient went to [facility] his medications but did not have an ID and the pharmacy would not give him his Suboxone. Patient did get his Keppra 1000 mg dose and took the medication about 1 hour prior to coming to the emergency department. He states that he took the bus to the hospital and the bus stopped at the bottom of the heel at the [facility] entrance and did not come up the hill to the ED and drinks. The patient walked into the [facility] and told a armed security officer that he is going to have a seizure and that he was having an aura. The patient then had a brief loss of consciousness, fell forward and struck his head on the floor. He states he also struck his left chest. He states that he has tonic-clonic seizures and small seizures where he only passes out briefly and does not have a postictal period. The armed security officer called a code assist and the patient was placed on a stretcher and brought to the emergency department for evaluation. At the time my evaluation he is complaining of forehead pain secondary to his fall. He is also complaining of left-sided chest wall pain. He also is complaining of withdrawal symptoms. Vital signs revealed an elevated blood pressure and elevated heart rate. Patient did have tenderness palpation in his left forehead with no ecchymosis or hematoma. He also had tenderness palpation in his left chest wall with no ecchymosis or crepitus. Differential diagnosis: ?Includes but is not limited to seizure, syncope, closed head injury, skull fracture, intracranial bleed, left chest wall contusion, left rib contusion, left rib fracture, pneumothorax, Suboxone withdrawal Course: 16:51 Patient states that he knows that he had a seizure and it was 1 of his ?small seizures?. He refused blood work but did agree to his CT scan of the head and chest x-ray. CT scan was unremarkable. Chest x-ray revealed no acute displaced rib fractures or obvious pneumothorax. Patient was given ibuprofen 400 mg orally for his chest wall pain. He was also given Suboxone 16 mg/4 mg sublingually. Patient was given prescriptions for ibuprofen every 6 hours as needed for pain and Tylenol 1000 mg every 6 hours as needed for pain. He was also given a lidocaine patch here in the emergency department and a prescription for lidocaine patches for 12 hours daily. I told the patient that we do not have the ability to send him home with a dose of Suboxone. I advised that he return to emergency department tomorrow morning and we give him his Suboxone dose. Patient will then need to follow up with [facility] or with our [facility] to see how he can get his prescription filled or more doses of Suboxone. Differential Diagnosis Differential Diagnoses: The differential diagnosis associated with the presentation includes (See above) Admission/Observation Consideration of admission/observation: Escalation of care including admission/observation considered (Yes) Independent Interpretation I performed an independent interpretation of an: Plain X-Ray Interpretation: My independent interpretation patient's one-view chest x-ray is as follows: No acute fracture displaced fracture seen, no pneumothorax, Radiology Impression Discussion of test interpretation with radiology: I have reviewed the radiologist's reading. Radiologist Impression: XR chest 1V FINDINGS: Normal heart and mediastinal contours. No consolidation. No pleural effusion or pneumothorax. Mild spondylosis. No acute fracture. IMPRESSION: 1. No acute findings. No pneumothorax. This document has been electronically signed by: Constantin Graf MD on 08/18/2025 16:48:52 Prescription Management I considered prescription management with: Pain Medication (Prescribed ibuprofen 400 mg q.6 hours PRN pain , Tylenol 1000 mg q.6 hours PRN pain and lidocaine patch 4% for 12 hours a day as needed for pain.) Chronic Conditions Patient?s care impacted by: Other (Seizure disorder) Discharge Plan Discharge Clinical Impression: Epileptic seizure, Closed head injury, Contusion of rib on left side, Oxycodone use disorder, moderate, in sustained remission Patient Disposition: Home, Self-Care Additional Instructions: Your CT scan of your head was normal. There was no skull fracture or bleeding in your brain noted by the radiologist. On my interpretation of your one-view chest x-ray, I do not see any displaced broken ribs. It is possible that you may have a nondisplaced broken rib or a bad contusion to the ribs on the left side of your chest. At often take 2-6 weeks for rib fracture or contusion to heal. Apply ice for 15 minutes 4 to 6 times a day for the next 3-4 days to the left side of your chest. Take ibuprofen 400 mg pills, 1 pills every 6 hours as needed for pain. Take Tylenol (acetaminophen) 500 mg pills, 2 pills every 6 hours as needed for pain. Continue taking your other medications as prescribed by your providers. We do not have the ability to give you a Suboxone to take at home for you dosetomorrow. I recommend that you return to the emergency department tomorrow morning and we will give you your dose of Suboxone. After tomorrow, you will need to follow up with the [facility] to see if they can help you get your Suboxone. You can also try following up with our [facility] to see if they can help you. Please return to the emergency department if your symptoms get worse or if you develop any symptoms that are concerning to you. You can call or walk into our outpatient Addiction Treatment office: [facility] (M-F 9am-5p) [address] [place] [address], [phone] Drinking alcohol with seizure disorder/epilepsy can cause you to have more seizures therefore he should not drink alcohol. Prescriptions: New acetaminophen [Tylenol Extra Strength] 500 mg tablet 1,000 mg PO Q6H PRN (Reason: fever or pain) Qty: 20 0RF ibuprofen 400 mg tablet 400 mg PO TID PRN (Reason: fever or pain) Qty: 30 0RF lidocaine 4 % adhesive patch,medicated 1 patch topical DAILY PRN (Reason: Left rib contusion) Qty: 15 0RF Rx Instructions: Remove after 12 hours Print Language: Nepali
[2025-08-18] MEDS: Buprenorphine/Naloxone 8/2 mg TAB.SUBL 1 TAB SUBLINGUAL (15:33)
--- OUTSIDE RECORDS SUMMARY | 2025-08-18 16:00 | XMS_ITS | Clinical Summary ---
Author Organization [facility] Address [address] [place] [address] Phone Care Team Providers Care Lard Renderer Name Role Phone Physician, Pcp Unknown Primary Care Provider Kae vailable Allergies No known active allergies Social History Tobacco Use Types Packs/Day Years Used Date Smoking Tobacco: Never Assessed Sex and Gender Information Value Date Recorded Sex Assigned at Not on file Legal Sex Male 5:44 AM EST Gender Identity Not on file Sexual Orientation Not on file Obstetrics History Last Filed Vital Signs Vital Sign Reading Time Taken Comments Blood Pressure 129/63 08/20/2024 5:37 AM EST Pulse 89 08/20/2024 5:37 AM EST Temperature 36.9 C (98.4 F) 08/20/2024 5:37 AM EST Respiratory Rate 16 08/20/2024 5:37 AM EST Oxygen Saturation 96% 08/20/2024 5:37 AM EST Inhaled Oxygen Concentration - - Weight 118 kg (260 lb) 08/19/2024 9:36 PM EST Height 188 cm (6' 2 ) 08/19/2024 9:36 PM EST Body Mass Index 33.38 08/19/2024 9:36 PM EST Plan of Treatment Health Maintenance Due Date Last Done Comments HPV Vaccines (1 - 3-dose SCD M series) 2009 Cholesterol Screening (Lipid Panel) 08/20/2024 HIV Screening 08/20/2024 Hepatitis C Screening 08/20/2024 Social Influencers of Health Screening 08/20/2024 Depression Screening 09/27/2024 COVID-19 Vaccine ( - 2024-2 6 season) 2025 Influenza Vaccine (#1) 2025 DTaP,Tdap,and Td Vaccines (3 - Td or Tdap) 07/27/2031 07/27/2021, 02/27/2016 RSV Immunization Adult Patients (1 - 1-dose 75+ series) 2057 Hepatitis B Vaccines Completed 03/27/2010, 11/01/2009, 10/07/2009 Hepatitis A Vaccines Completed 05/01/2010, 11/13/2004 HIB Vaccines Aged Out No longer eligi ble based on patient's age to complete this topic IPV Vaccines Aged Out No longer eligi ble based on patient's age to complete this topic MMR Vaccines Aged Out No longer eligi ble based on patient's age to complete this topic Meningococcal ACWY Vaccine Aged Out N o longer eligible based on patient's age to complete this topic Meningococcal B Vaccine Aged Out No l onger eligible based on patient's age to complete this topic Pneumococcal Vaccine: Pediatrics (0 to 5 Years) and At-Risk Patients (6 to 49 Years) Aged Out No longer eligible b ased on patient's age to complete this topic RSV Immunization Patients Under 20 months Aged Out No longer eligible b ased on patient's age to complete this topic Varicella Vaccines Aged Out No longer eligible based on patient's age to complete this topic Insurance Care Teams Lard Renderer Relationship Specialty Start Date End Date Physician, Pcp Unknown PCP - General 08/19/24
--- OUTSIDE RECORDS SUMMARY | 2025-08-18 16:01 | XMS_ITS | Clinical Summary ---
Author Organization [employer] Address [address] [place] [address] [address] [place] [address] Care Team Providers Care Hand Decorator Name Role Phone Unavailable Primary Care Provider Unavailabl e Encounters Date Type Department Care Team Description 08/17/2025 Telephone [facility] [address] [place] [phone] Esteban Clemente MD from Last 3 Months Social History Tobacco Use Types Packs/Day Years Used Date Smoking Tobacco: Never Assessed Sex and Gender Information Value Date Recorded Sex Assigned at Male 07/27/2022 10:15 AM EDT Legal Sex Male 10:15 AM EDT Gender Identity Male 07/27/2022 10:15 AM EDT Sexual Orientation Straight 07/27/2022 10 :15 AM EDT Plan of Treatment Upcoming Encounters Date Type Department Care Team (Late st Contact Info) Description 08/20/2025 1:00 PM EST Office Visit [facility] [address] [place] [phone] Kaleigh Boyer RN 08/20/2025 2:15 PM EST Office Visit [address] [phone] Esteban Clemente MD [address] [place] [phone] Health Maintenance Due Date Last Done Comments Depression Screening 1982 Lipid Panel 1982 SDOH Screening 1982 Disability Screening 1982 Alcohol/Substance Use Screening 1994 Tobacco Screening 1994 Family Planning (PISQ) 1997 HPV Vaccines (1 - Male 3-dose series) 1997 COVID-19 Vaccine ( season) 2025 Influenza Vaccine (#1) 2025 DTaP/Tdap/Td Vaccines (3 - Td or Tdap) 07/27/2031 07/27/2021, 02/27/2016 Zoster Vaccines (1 of 2) 2032 RSV Patients and Patients Aged 60 years or older (1 - 1-dose 75+ series) 2057 HIV Screening Completed 03/21/2021 Hepatitis C Screening Completed 03/21/2021 Hepatitis A Vaccines Completed 01/31/2022, 05/01/2010, 11/13/2004 Hepatitis B Vaccines Completed 01/31/2022, 03/27/2010, 11/01/2009, Additional history exists Pneumococcal Vaccine: Pediatrics (0 to 5 Years) and At-Risk Patients (6 to 49) Years Aged Out 01/31/2022 No longer eligible based on patient's age to complete this topic HIB Vaccines Aged Out No longer eligi ble based on patient's age to complete this topic IPV Vaccines Aged Out No longer eligi ble based on patient's age to complete this topic Meningococcal B Vaccine Aged Out No l onger eligible based on patient's age to complete this topic Meningococcal Vaccine Aged Out No jaylan arnaud eligible based on patient's age to complete this topic RSV under 20 months Aged Out No longe r eligible based on patient's age to complete this topic Rotavirus Vaccines Aged Out No longer eligible based on patient's age to complete this topic Procedures Procedure Name Priority Date/Time Associated Diagnosis Comments ZZZ HISTORICAL HEPATITIS C AB W/REFL TO HCV RNA, QN, PCR Routine 03/21/2021 10:07 AM EDT HIV 1/2 ANTIGEN/ANTIBODY, FOURTH GENERATION W/RFL Routine 03/21/2021 10:07 AM EDT from Last 3 Months or Most Recently Relevant to Health Maintenance Results * (ABNORMAL) HEPATITIS C AB W/REFL TO HCV RNA, QN, PCR (03/21/2021 10:07 AM EDT) HEPATITIS C ANTIBODY REACTIVE( A) NON-REACT [facility] INDEX 27.10(H) <1.00 [facility] Comment: Based on this result, the sample will be tested for HCV RNA by a Nucleic Acid Amplification Test (NAAT) to determine if the patient has a current active infection. 03/21/2021 10:0 7 AM EDT Chapo Wiseman MD HISTORICAL/NON ORDERABLE LABS Final Result Performing Organization Address [facility] de Phone Number [facility] [address] * HIV 1/2 ANTIGEN/ANTIBODY,FOURTH GENERATION W/RFL (03/21/2021 10:07 AM EDT) HIV-1/2 ANTIGEN AND ANTIBODIES, 4TH GENERATION W/ REFLEX NON-REACT CARMEN NON-REACT CARMEN [facility] Comment: HIV-1 antigen and HIV-1/HIV-2 antibodies were not detected. There is no laboratory evidence of HIV infection. PLEASE NOTE: This information has been disclosed to you from records whose confidentiality may be protected by state law. If your state requires such protection, then the state law prohibits you from making any further disclosure of the information without the specific written consent of the person to whom it pertains, or as otherwise permitted by law. A general authorization for the release of medical or other information is NOT sufficient for this purpose. For additional information please refer to http://education.[employer]/faq/CLO552 (This link is being provided for informational/ educational purposes only.) The performance of this assay has not been clinically validated in patients less than 2 years old. 03/21/2021 10:0 7 AM EDT Chapo Wiseman MD LAB BLOOD ORDERABLES Final Res ult Performing Organization Address [facility] Co de Phone Number [facility] [address] from Last 3 Months or Most Recently Relevant to Health Maintenance Insurance [employer]
--- OUTSIDE RECORDS SUMMARY | 2025-08-18 16:01 | XMS_ITS | Encounter Summary ---
Author Organization [employer] Address [address] [place] [address] Care Team Providers Care Grant Specialist Name Role Phone Unavailable Primary Care Provider Unavailabl e Encounter Details Date Type Department Care Team (Late st Contact Info) Description 08/17/2025 Telephone [facility] [address] [place] [phone] Esteban Clemente MD [address] [place] [address] Social History Tobacco Use Types Packs/Day Years Used Date Smoking Tobacco: Never Assessed Sex and Gender Information Value Date Recorded Sex Assigned at Male 07/27/2022 10:15 AM EDT Legal Sex Male 10:15 AM EDT Gender Identity Male 07/27/2022 10:15 AM EDT Sexual Orientation Straight 07/27/2022 10 :15 AM EDT documented as of this encounter Miscellaneous Notes * Telephone Encounter - Chrystal Ramirez - 08/17/2025 2:43 PM EST Phone number disconnected. Patient needs to switch insurance before being seen documented in this encounter Plan of Treatment Upcoming Encounters Date Type Department Care Team (Late st Contact Info) Description 08/20/2025 1:00 PM EST Office Visit [facility] [address] [place] [phone] Kaleigh Boyer RN 08/20/2025 2:15 PM EST Office Visit [facility] [address] [place] [phone] Esteban Clemente MD [address] [place] [phone] documented as of this encounter Visit Diagnoses Not on filedocumented in this encounter
[2025-08-18 17:15] VITALS: BP 110/67; PULSE 110; RESP 16; TEMP 36.1; O2SAT 96
[2025-08-18 18:10] LABS: Glucose, Whole Blood 116 mg/dL (60-115)
== END 2025-08-18 17:44 | disposition home or self-care (01) ==
PROVIDERS: Emergency Provider Emergency Medicine Emergency Medical Services
DX: R56.9 Unspecified convulsions (principal); R07.89 Other chest pain; R55 Syncope and collapse; R03.0 Elevated blood-pressure reading, without diagnosis of hypertension; Z79.891 Long term (current) use of opiate analgesic; Z79.899 Other long term (current) drug therapy
CPT/HCPCS: 70450; 71045; 82947; 99283; 99284

== ENCOUNTER → 2025-08-18 15:12 | Outpatient (BNV) | payer OTHER, SELFPAY | PROVIDERS: Emergency Provider Emergency Medicine Emergency Medical Services; Visit Provider Radiology Diagnostic Radiology | DX: S09.90XA Unspecified injury of head, initial encounter (principal); R56.9 Unspecified convulsions; R07.9 Chest pain, unspecified; Z04.3 Encounter for examination and observation following other accident | CPT/HCPCS: 70450; 71045 ==

== ENCOUNTER 2025-08-21 20:35 | Inpatient (IN) | payer OTHER, SELFPAY ==
--- OUTSIDE RECORDS SUMMARY | 2025-08-21 20:42 | XMS_ITS | Clinical Summary ---
Author Organization [employer] Address [address] [place] [address] Care Team Providers Care Finance Attorney Name Role Phone Unavailable Primary Care Provider Unavailabl e Encounters Date Type Department Care Team Description 08/17/2025 Telephone [facility] MEDICINE [address] [place] [address] Esteban Clemente MD from Last 3 Months Social History Tobacco Use Types Packs/Day Years Used Date Smoking Tobacco: Never Assessed Sex and Gender Information Value Date Recorded Sex Assigned at Male 07/27/2022 10:15 AM EDT Legal Sex Male 10:15 AM EDT Gender Identity Male 07/27/2022 10:15 AM EDT Sexual Orientation Straight 07/27/2022 10 :15 AM EDT Plan of Treatment Health Maintenance Due Date Last Done Comments Depression Screening 1982 Lipid Panel 1982 SDOH Screening 1982 Disability Screening 1982 Alcohol/Substance Use Screening 1994 Tobacco Screening 1994 Family Planning (PISQ) 1997 HPV Vaccines (1 - Male 3-dose series) 1997 COVID-19 Vaccine ( - 2024- season) 2025 Influenza Vaccine (#1) 2025 DTaP/Tdap/Td [...] Procedure Name Priority Date/Time Associated Diagnosis Comments MINNIE HISTORICAL HEPATITIS C AB W/REFL TO HCV RNA, QN, PCR Routine 03/21/2021 10:07 AM EDT HIV 1/2 ANTIGEN/ANTIBODY, FOURTH GENERATION W/RFL Routine 03/21/2021 10:07 AM EDT from Last 3 Months or Most Recently Relevant to Health Maintenance Results * (ABNORMAL) HEPATITIS C AB W/REFL TO HCV RNA, QN, PCR (03/21/2021 10:07 AM EDT) Pathologist [facility] HEPATITIS C ANTIBODY REACTIVE( A) NON-REACT CARMEN [facility] INDEX 27.10(H) <1.00 [facility] Comment: Based on this result, the sample will be tested for HCV RNA by a Nucleic Acid Amplification Test (NAAT) to determine if the patient has a current active infection. 03/21/2021 10:0 7 AM EDT us Chapo Wiseman MD HISTORICAL/NON ORDERABLE LABS Final Result [facility] [address] * HIV 1/2 ANTIGEN/ANTIBODY,FOURTH GENERATION W/RFL (03/21/2021 10:07 AM EDT) HIV-1/2 ANTIGEN AND ANTIBODIES, 4TH GENERATION W/ REFLEX NON-REACT CARMEN NON-REACT CARMEN [facility] Comment: HIV-1 antigen and [...] purpose. For additional information please refer to http://education.Neocleus/faq/HEC625 (This link is being provided for informational/ educational purposes only.) The performance of this assay has not been clinically validated in patients less than 2 years old. 03/21/2021 10:0 7 AM EDT us Chapo Wiseman MD LAB BLOOD ORDERABLES Final Res ult [facility] [address] from Last 3 Months or Most Recently Relevant to Health Maintenance Insurance [employer] [facility] [facility]
--- OUTSIDE RECORDS SUMMARY | 2025-08-21 20:42 | XMS_ITS | Encounter Summary ---
Author Organization [employer] Address [address] [place] [address] Care Team Providers Care Professional Bondsman Name Role Phone Unavailable Primary Care Provider Unavailabl e Encounter Details Date Type Department Care Team (Late st Contact Info) Description 08/17/2025 Telephone [facility] MEDICINE [address] [place] [address] Esteban Clemente MD [address] [place] [address] Social History Tobacco Use Types Packs/Day Years [...] documented in this encounter Plan of Treatment Not on file documented as of this encounter Visit Diagnoses Not on filedocumented in this encounter
--- OUTSIDE RECORDS SUMMARY | 2025-08-21 20:42 | XMS_ITS | Clinical Summary ---
Author Organization [facility] Address [address] [place] [address] Phone Care Team Providers Care Review Trainer Name Role Phone Physician, Pcp Unknown Primary [...] to complete this topic Insurance Care Teams Review Trainer Relationship Specialty Start Date End Date Physician, Pcp Unknown PCP - General 08/19/24
[2025-08-21 21:33] VITALS: BP 142/73; PULSE 91; RESP 16; TEMP 36.9; O2SAT 96
[2025-08-21 21:35] VITALS: BMI 52.0
[2025-08-21] MEDS: Buprenorphine/Naloxone 4/1 mg FILM 1 FILM SUBLINGUAL (22:29)
--- NOTE | 2025-08-22 06:14 | PC.ADMIT ---
Admission Note, Patient arrived approx. 2049 on a stretcher with security and EMS from [facility]. Pt initially was seen for seizures. Pt was treated and discharged. Pt returned to [facility] for OD of his Keppra (30,000mg) as a suicide attempt. Drug screen + for cocaine, and ETOH level of 35. Patient was incarcerated for a year and was released on 08/17/2025. Patient admits to Partying as a celebration of release. Pt states he is currently homeless. Pt has a lack of support from family. Patient also was triggered when his medications were sent to his pharmacy and was only aloud to get his Keppra and LIpitor r/t no available ID for his Suboxone. EKG done at [facility]. Skin assessment and acid changer done without findings. Patient is a larger ольга, and was given his sweat shirt back (as our kelsie's don't fit him) however with permission from pt hoodie was removed. Pt in his own pants and slides. Pt has misc. tattoos and scars including one on the right side of his face. Pt was in pain from the bottom of his feet hurting. Pt cooperative during assessments. Pt calm and cooperative, pleasant and polite. Patient in kitchen with Coral talking to her. Pt is on a CV 15min. Patient took meds and went to bed. Pt has no providers/therapists at this time as he was incarcerated.
--- NOTE | 2025-08-22 08:13 | HO.PM.IMCN ---
History of Present Illness Data of Consult Service Date: 08/22/25 Primary Care Provider: Joe Calloway MD [facility] Reason for consult: Medical H&P 44-year-old male with a past medical history of substance use disorder, hypertension, hyperlipidemia, restless legs syndrome, malaria with seizures as a result, hyperlipidemia, chronic sciatic back pain presented to outside emergency room after intentional overdose of Keppra which is perscribed for his Seizures.Prior to arrival to ED patiemt was in court 08/17/2025, handcuffed at the time and he fell forward with the cuffs hitting his chest subsequently causing pain on the lower sternum and bilateral flank area. He was recently released from a maximum security alf in July 2025 an immediately faced housing instability and inability to access his medications and did not have adequate clothing or footwear for the elements. in the ED Patient had a bedside ultrasound which demonstrated no free fluid in the abdomen or pericardial effusion. X-ray demonstrated no acute fracture. Tox screen was positive for cocaine, no metabolic abnormalities. No evidence of renal or liver dysfunction. No anemia or leukocytosis. Patient reportedly has a seizure on the while in court, patient also had a seizure noted on the where he had a code assist at [facility] was brought to the ED. At that time he struck his head and his left chest. Patient reports that prior to these 2 seizures, he had not had a seizure for 6 months. He was unable to obtain his Keppra which resulted in his seizures. His CT was negative in his chest x-ray was negative for any displaced rib fractures or pneumothorax. The ED assisted him in dosing of his Suboxone, they advised him to follow up the next day for subsequent Suboxone dosing until he can connect with an outside provider. On exam he has no medical concerns. Review of Systems Review of Systems: Denies any shortness of breath, chest pain, headaches, dysuria, abdominal pain or discomfort, nausea, vomiting or diarrhea. Denies fever or chills. [facility] Social History (System 07/14/22 @ 14:13 by Aliya Montero) Household Members: None Housing: Homeless Do you presently have visiting nurse or other home services: No Alcohol intake: unknown Patient Tobacco Use Status: Current everyday Tobacco user Tobacco use type: Cigarette Cigarette Packs Per Day: 0.5 Cigarettes Per Day: 10.0 Smoked in Last 30 Days: Yes e-Cigarette/Vaping Use: Never Used Patient Interested in Nicotine Replacement: Yes Patient Given Instructions on How to Stop Smoking: No Second Hand Smoke Exposure: No Substance Use Type: Heroin Currently Displaying Signs/Symptoms of Drug Intoxication Withdrawal: No Have you been hit, kicked, punched, or otherwise hurt by someone within the past year? If so, by whom?: No Do you feel safe in your current relationship?: No Current Relationship Is there a partner from a previous relationship who is making you feel unsafe now?: No Are you made to feel afraid or neglected: No Spiritual Healthcare Practices: Yazidi Advance Directives: No Advance Directives Information Provided: No Do you have thoughts of harming others: None Do you have a plan to hurt others: No Plan Recently lost weight without trying: No Eating poorly because of decreased appetite: No Nutrition Risks: No Nutritional Risk Poor oral hygiene: No service: No Sexual orientation: Straight/Heterosexual Meds Allergies Allergy/AdvReac Type Severity Reaction Status Date / Time No Known Drug Allergies (NO Allergy Mild NONE Verified 08/18/25 15:10 KNOWN DRUG ALLERGIES) Active Medications: Current Medications Acetaminophen (Acetaminophen 325 Mg Tablet) 650 mg PO Q6H PRN PRN Reason: Headache/Pain, Scale 1-10 Al Hydroxide/Mg Hydroxide (Magnesium Hydrox/Alum Hydrox 30 Ml Oral.Susp) 30 ml PO Q6H PRN PRN Reason: Heartburn/Nausea Atorvastatin Calcium (Atorvastatin Calcium 40 Mg Tablet) 40 mg PO DAILY FARIDA Buprenorphine/Naloxone (Buprenorphine/Naloxone 2/0.5mg Film) 1 film SUBLINGUAL DAILY FARIDA Cyclobenzaprine HCl (Cyclobenzaprine Hcl 5 Mg Tablet) 5 mg PO TID PRN PRN Reason: Muscle Spasm Last Admin: 08/21/25 22:29 Dose: 5 mg Gabapentin (Gabapentin 600 Mg Tablet) 600 mg PO TID FARIDA Hydroxyzine HCl (Hydroxyzine Hcl 50 Mg Tablet) 50 mg PO Q6H PRN PRN Reason: mild anxiety Ibuprofen (Ibuprofen 800 Mg Tablet) 800 mg PO Q8H PRN PRN Reason: severe pain Levetiracetam (Levetiracetam 500 Mg Tablet) 500 mg PO BID FARIDA Magnesium Hydroxide (Milk Of Magnesia 30 Ml Oral.Susp) 30 ml PO DAILY PRN PRN Reason: Constipation Melatonin (Melatonin 3 Mg Tablet) 9 mg PO BEDTIME FARIDA Nicotine (Nicotine 14 Mg Patch.Td24) 14 mg TRANSDERMA DAILY PRN PRN Reason: nicotine craving Nicotine Polacrilex (Nicotine Polacrilex 2 Mg Gum) 2 mg BUCCAL Q2H PRN PRN Reason: Nicotine Cravings Olanzapine (Olanzapine 5 Mg Tablet) 5 mg PO BID PRN PRN Reason: agitation Trazodone HCl (Trazodone Hcl 50 Mg Tablet) 50 mg PO BEDTIME MRX1 PRN PRN Reason: Insomnia Home Medications ?Medication ?Instructions ?Recorded ?Confirmed ?Last Taken ?Type atorvastatin 40 mg tablet 40 mg PO DAILY 08/21/25 08/21/25 Unknown History buprenorphine-naloxone 2 tab PO DAILY 08/21/25 08/21/25 Unknown History gabapentin 600 mg PO TID 08/21/25 08/21/25 08/21/25 16:40 History 600 mg ibuprofen 400 mg tablet 600 mg PO TID PRN fever or pain 08/21/25 Unknown History levetiracetam 500 mg PO BID 08/21/25 08/21/25 Unknown History melatonin 5 mg PO BEDTIME PRN Insomnia 08/21/25 08/21/25 Unknown History Physical Exam Vital Signs and Narrative: Vital Signs: Last Vital Signs Temp 98.5 F 08/21/25 21:33 Pulse 91 08/21/25 21:33 Resp 16 08/21/25 21:33 BP 142/73 H 08/21/25 21:33 Pulse Ox 96 08/21/25 21:33 O2 Del Method Room Air 08/21/25 21:33 BMI result Body Mass Index 52.0 Alert and oriented X3, calm and cooperative. Answers questions. Large in stature. Neuro: CN II-X11 intact, no deficits, visual acuity intact EYES: PERRLA, EOM intact ENT: Hearing intact, MMM Cardiac: S1 S2 RRR, No ectopy Pulmonary: lungs clear to auscultation, No increased WOB. Abdominal: BS active in all 4 quadrants, no guarding or tenderness. Obese abdomen MSK: Strength 5/5 upper and lower extremities : Deferred Extremities: No edema in lower extremities Psych: Mood stable, Quiet and cooperative. Skin: Warm and dry, Intact Results Labs 08/22/25 10:47 Assessment and Plan (1) Seizure disorder: Status: Acute Plan 44-year-old male with past medical history listed below, presented to the ED secondary seizure disorder as well as a intentional overdose. Patient is now admitted for stabilization Major depressive disorder/SI Treatment per psychiatric team Hypertension/hyperlipidemia Blood pressure stable off of medications Continue Lipitor daily Seizure disorder As a result of the history of malaria Patient is on Keppra 500 mg b.i.d. Keppra level pending Patient has a smell of eggs as an aura Reports last seizure prior to recent has been 6 months ago. Chronic sciatic back pain Continue Neurontin t.i.d. Patient reports previous dose was 800 mg t.i.d. while he was in alf Consider increasing if patient does not have relief from current dosing. Thank you for allowing me to participate in the care of this patient. Will follow with you, please notify medical provider with any changes in condition or concerns.
[2025-08-22 08:30] VITALS: BP 115/57; PULSE 75; RESP 18; TEMP 36.8; O2SAT 96
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
[2025-08-22 11:17] LABS: Alanine Aminotransferase 29 U/L (0-40); Albumin Level 4.1 g/dL (3.5-5.0); Alkaline Phosphatase 132 U/L (39-117); Anion Gap 11 (12-20); Aspartate Amino Transferase 50 U/L (5-37); Blood Urea Nitrogen 12 mg/dL (9-16); Calcium 9.4 mg/dL (8.4-10.2); Carbon Dioxide 27 mmol/L (22-29); Chloride 108 mmol/L (96-108); Cholesterol 161 mg/dL (<200); Creatinine Clr Calc Pharmacy 245.0; Estimated Glomerular Filt Rate > 60; HDL Cholesterol 43 mg/dL (>40); Potassium 4.3 mmol/L (3.3-5.1); Sodium 142 mmol/L (135-145); Total Protein 6.9 g/dL (6.5-8.0); Triglycerides 176 mg/dL (<150)
[2025-08-22 11:34] LABS: Free T4 (Free Thyroxine) 1.07 ng/dL (0.71-1.85); Thyroid Stimulating Hormone 0.98 uIU/mL (0.32-4.0)
[2025-08-22 11:42] LABS: Vitamin B12 505 pg/mL (200-900)
[2025-08-22] MEDS: Buprenorphine/Naloxone 4/1 mg FILM 1 FILM SUBLINGUAL (14:01)
[2025-08-22 20:00] VITALS: BP 138/67; PULSE 104; RESP 18; TEMP 37.7; O2SAT 97
[2025-08-23 08:00] VITALS: BP 150/70; PULSE 74; RESP 18; TEMP 36.9; O2SAT 95
[2025-08-23] MEDS: Buprenorphine/Naloxone 4/1 mg FILM 1 FILM SUBLINGUAL ×2 (14:28→20:22)
[2025-08-23 20:00] VITALS: BP 140/75; PULSE 94; TEMP 37.4; O2SAT 97
--- NOTE | 2025-08-23 22:25 | HO.PSYCHPN ---
Subjective Subjective Date of Service: 08/23/25 Reason For Visit: SI Subjective Notes: Cuevas Warning and Conditional Voluntary Healthcare Proxy: No Guardianship: No Medical Problems Affecting Mental Status: No Interim History: Medical record and nursing notes reviewed; case discussed during rounds with team/nursing staff, and met with patient for supportive therapy/psychoeducation, as well as medication management. Report anxiety 06/06, depression a 04/05. Continue reporting W/D from Suboxone which he bought extra in alf. Discuss with him to increase up to total of 24mg as home dose. Report it also helps with pain which he rates it an 05/06. Denies SI/SIB/HI/AVH Per nursing, meds compliant and slept for 7 hours. Continue with current plan Medication Compliance: Yes Side effects from medications: No Attending Groups: Intermittent Review of Systems Acute medical concerns: No Medical Review of Systems: unchanged Review of Systems Review of Systems Denies any shortness of breath, chest pain, headaches, dysuria, abdominal pain or discomfort, nausea, vomiting or diarrhea. Denies fever or chills. Mental Status Exam Mental Status Exam Narrative: Patient is A+Ox4, wearing casual attire, walking with pain gait, Overweight, no ADL's issues. Anxious, depressed but pleasant and cooperative. Able to advocate for self. Speech WNI, normal rate and volume, and honest. Thought process is WNL, organized, and linear. Thought content without SI/SIB/HI/AVH. Future focus and treatment oriented. No delusional, paranoid statements make. Fair judgment and insight. Diagnostics Vital Signs (24Hr): Vital Signs - 24 hr 08/23/25 08:00 08/23/25 20:00 Temperature 98.5 F 99.4 F Pulse Rate 74 94 Respiratory Rate 18 Blood Pressure 150/70 H 140/75 H Pulse Oximetry 95 97 Oxygen Delivery Method Room Air Room Air BMI result Body Mass Index 52.0 Labs 08/22/25 10:47 Labs: Laboratory Results - last 48 hr 08/22/25 10:47 Sodium 142 Potassium 4.3 Chloride 108 Carbon Dioxide 27 Anion Gap 11 L BUN 12 Creatinine 0.72 Estim Creat Clear Calc 245.0 Estimated GFR > 60 Random Glucose 115 Estimat Average Glucose 111 Hemoglobin A1c % 5.5 Calcium 9.4 Total Bilirubin 0.2 AST 50 H ALT 29 Alkaline Phosphatase 132 H Total Protein 6.9 Albumin 4.1 Triglycerides 176 H Cholesterol 161 LDL Cholesterol, Calc 83 HDL Cholesterol 43 Vitamin B12 505 TSH 0.98 Free T4 1.07 Medications Medications Current Medications Acetaminophen (Acetaminophen 325 Mg Tablet) 650 mg PO Q6H PRN PRN Reason: Headache/Pain, Scale 1-10 Last Admin: 08/23/25 20:21 Dose: 650 mg Al Hydroxide/Mg Hydroxide (Magnesium Hydrox/Alum Hydrox 30 Ml Oral.Susp) 30 ml PO Q6H PRN PRN Reason: Heartburn/Nausea Atorvastatin Calcium (Atorvastatin Calcium 40 Mg Tablet) 40 mg PO DAILY [facility] Last Admin: 08/23/25 09:00 Dose: 40 mg Buprenorphine/Naloxone (Buprenorphine/Naloxone 8/2 Mg Film) 2 film SUBLINGUAL DAILY [facility] Last Admin: 08/23/25 09:01 Dose: 2 film Buprenorphine/Naloxone (Buprenorphine/Naloxone 4/1 Mg Film) 1 film SUBLINGUAL DAILY@1500,2100 [facility] Last Admin: 08/23/25 20:22 Dose: 1 film Cyclobenzaprine HCl (Cyclobenzaprine Hcl 5 Mg Tablet) 5 mg PO TID PRN PRN Reason: Muscle Spasm Last Admin: 08/23/25 20:21 Dose: 5 mg Gabapentin (Gabapentin 600 Mg Tablet) 600 mg PO TID [facility] Last Admin: 08/23/25 20:19 Dose: 600 mg Hydroxyzine HCl (Hydroxyzine Hcl 50 Mg Tablet) 50 mg PO Q6H PRN PRN Reason: mild anxiety Last Admin: 08/23/25 17:59 Dose: 50 mg Ibuprofen (Ibuprofen 800 Mg Tablet) 800 mg PO Q8H PRN PRN Reason: severe pain Last Admin: 08/23/25 17:59 Dose: 800 mg Levetiracetam (Levetiracetam 500 Mg Tablet) 500 mg PO BID [facility] Last Admin: 08/23/25 20:19 Dose: 500 mg Magnesium Hydroxide (Milk Of Magnesia 30 Ml Oral.Susp) 30 ml PO DAILY PRN PRN Reason: Constipation Melatonin (Melatonin 3 Mg Tablet) 9 mg PO BEDTIME [facility] Last Admin: 08/23/25 20:19 Dose: 9 mg Nicotine (Nicotine 14 Mg Patch.Td24) 14 mg TRANSDERMA DAILY PRN PRN Reason: nicotine craving Nicotine Polacrilex (Nicotine Polacrilex 2 Mg Gum) 2 mg BUCCAL Q2H PRN PRN Reason: Nicotine Cravings Olanzapine (Olanzapine 5 Mg Tablet) 5 mg PO BID PRN PRN Reason: agitation Last Admin: 08/22/25 17:44 Dose: 5 mg Trazodone HCl (Trazodone Hcl 50 Mg Tablet) 50 mg PO BEDTIME MRX1 PRN PRN Reason: Insomnia Allergies Allergies Allergy/AdvReac Type Severity Reaction Status Date / Time No Known Drug Allergies (NO Allergy Mild NONE Verified 08/18/25 15:10 KNOWN DRUG ALLERGIES) Assessment & Plan Assessment & Plan (1) Major depressive disorder, recurrent, unspecified: Status: Acute Code(s): F33.9 - Major depressive disorder, recurrent, unspecified (2) Chronic back pain: Status: Acute Code(s): M54.9 - Dorsalgia, unspecified; G89.29 - Other chronic pain (3) Seizure disorder: Status: Acute Code(s): G40.909 - Epilepsy, unspecified, not intractable, without status epilepticus (4) HTN (hypertension): Status: Acute Code(s): I10 - Essential (primary) hypertension (5) Overdose by ingestion: Status: Acute Code(s): T50.901A - Poisoning by unspecified drugs, medicaments and biological substances, accidental (unintentional), initial encounter Plan Medical floor at [facility] HPI: Patient is is 44 years old single, Venezuelan speaking male with history of depression, polysubstance use disorder, chronic sciatic back pain, seizure disorder, hypertension, restless leg syndrome who presented to ED on August 19 stating that he had ingested 60 Keppra tablets prior to arrival. Also reports he was having thoughts of cutting himself. Precipitant: Patient was just released from incarceration on 08/17 and was not able to get Suboxone prescription filled due to not having ID. Patient stated that he and his financial rep told prescriber that this is was going to be a problem but states that he was ignored. Patient also states that he had a seizure episode prior to be admitted. Patient was agitated at that time due to wanting to leave even though acknowledged saying that he still have same stressors that led into overdose including lack of housing when he was sectioned 12. Formulation/clinical reasoning: Limited support in community. No family support. Just released from alf, no outpatient providers. Homeless, no jobs, increased anxiety and depression, with poor sleep overdose on Keppra, and also have plan to cut himself. Not able to feel his Suboxone due to have no idea after released from alf. History of depression, polysubstance use, history of aggressive behavior. Given above information, patient will benefit in restrictive environment for his own safety, medication management, and refer patient to outpatient psychiatry services as aftercare. Hospital course: 08/22/25: Continue with home medication/ or medication was started from the ED/Medical floor Suboxone 8/2 film-2 films daily in the morning Due to withdrawal symptoms from extra Suboxone he bought from a friend, we will at Suboxone 4 mg daily at 15:00. Today is his 2nd dose. We will continue to titrate up to 24 mg. Gabapentin 600 t.i.d. for nerve pain/mood-newly started from [employer]. Melatonin 9 mg at bedtime for insomnia. With trazodone as needed Flexeril 5 mg t.i.d. p.r.n. for muscle spasm. Vistaril 50 q.4 6 hours p.r.n. for anxiety. Keppra 500 twice a day for seizure. Motrin 800 t.i.d. for severe pain. We will reassess if patient is willing to start on antidepressants for depression anxiety. 08/23/25: Report anxiety 9/10, depression a 7/10. Continue reporting W/D from Suboxone which he bought extra in alf. Discuss with him to increase up to total of 24mg as home dose. Report it also helps with pain which he rates it an 8/10. Denies SI/SIB/HI/AVH Per nursing, meds compliant and slept for 7 hours. Continue with current plan Increase Suboxone up to total 24mg daily in divided dose for pain. Pending Keppra level Plan Patient on 15 minute checks for safety. Admitted to M5. CV. Work with treatment team to do collateral.. Refer to patient to family dinner service specialist: decline Contact the hospitalist regarding hospitalist consultation on admission: seen. Patient educated on: diagnosis, medication risk/benefits, substance abuse and therapeutic strategies Informed Consent: understands and further education needed Reason for continued inpatient stay Substantial Risk for: med/psych decompensation Time Spent With Patient Time: Total time managing care of this patient today ____ minutes.
[2025-08-24 08:30] VITALS: BP 101/50; PULSE 82; RESP 18; TEMP 36.7; O2SAT 98
[2025-08-24] MEDS: Buprenorphine/Naloxone 4/1 mg FILM 1 FILM SUBLINGUAL ×2 (15:04→20:57)
--- NOTE | 2025-08-24 16:02 | HO.PSYCHPN ---
Subjective Subjective Date of Service: 08/24/25 Reason For Visit: SI Subjective Notes: Cuevas Warning and Conditional Voluntary Healthcare Proxy: No Guardianship: No Medical Problems Affecting Mental Status: No Interim History: Medical record and nursing notes reviewed; case discussed during rounds with team/nursing staff, and met with patient for supportive therapy/psychoeducation, as well as medication management. Patient reports slept better last night as Suboxone increased up to total 24mg for pain. however, he asked to have Gabapentin up to total of 2,400mg daily that he used to take from care home. Patient is aware that this provider will not change Gabapentin but discussed with patient medications especially [place] regarding unspecified Bipolar. Patient cannot make decision but states that he would call and ask his sister regarding [place] as she also takes it and will update this provider to contact his RN to let staff know if he is willingly to start. Denies SI/SIB/HI/AVH. Medication seeking behaviors but pleasant and cooperative, somewhat understandable regarding meds not prescribed. Per nursing, slept for 8 hours, compliant with meds. napping after breakfast. Continue with current tx plan. Medication Compliance: Yes Side effects from medications: No Attending Groups: Intermittent Review of Systems Acute medical concerns: No Medical Review of Systems: unchanged Review of Systems Review of Systems Denies any shortness of breath, chest pain, headaches, dysuria, abdominal pain or discomfort, nausea, vomiting or diarrhea. Denies fever or chills. Mental Status Exam Mental Status Exam Narrative: Patient is A+Ox4, wearing casual attirre,Overweight, no ADL's issues. Anxious, depressed but pleasant and cooperative. Able to advocate for self. Speech WNI, normal rate and volume, and honest. Thought process is WNL, organized, and linear. Thought content without SI/SIB/HI/AVH. Future focus and treatment oriented. No delusional, paranoid statements make. Fair judgment and insight. Diagnostics Vital Signs (24Hr): Vital Signs - 24 hr 08/23/25 20:00 08/24/25 08:30 Temperature 99.4 F 98.0 F Pulse Rate 94 82 Respiratory Rate 18 Blood Pressure 140/75 H 101/50 L Pulse Oximetry 97 98 Oxygen Delivery Method Room Air Room Air BMI result Body Mass Index 52.0 Labs 08/22/25 10:47 Medications Medications Current Medications Acetaminophen (Acetaminophen 325 Mg Tablet) 650 mg PO Q6H PRN PRN Reason: Headache/Pain, Scale 1-10 Last Admin: 08/23/25 20:21 Dose: 650 mg Al Hydroxide/Mg Hydroxide (Magnesium Hydrox/Alum Hydrox 30 Ml Oral.Susp) 30 ml PO Q6H PRN PRN Reason: Heartburn/Nausea Atorvastatin Calcium (Atorvastatin Calcium 40 Mg Tablet) 40 mg PO DAILY [facility] Last Admin: 08/24/25 08:40 Dose: 40 mg Buprenorphine/Naloxone (Buprenorphine/Naloxone 8/2 Mg Film) 2 film SUBLINGUAL DAILY [facility] Last Admin: 08/24/25 08:40 Dose: 2 film Buprenorphine/Naloxone (Buprenorphine/Naloxone 4/1 Mg Film) 1 film SUBLINGUAL DAILY@1500,2100 [facility] Last Admin: 08/24/25 15:04 Dose: 1 film Cyclobenzaprine HCl (Cyclobenzaprine Hcl 5 Mg Tablet) 5 mg PO TID PRN PRN Reason: Muscle Spasm Last Admin: 08/24/25 09:08 Dose: 5 mg Gabapentin (Gabapentin 600 Mg Tablet) 600 mg PO TID [facility] Last Admin: 08/24/25 15:04 Dose: 600 mg Hydroxyzine HCl (Hydroxyzine Hcl 50 Mg Tablet) 50 mg PO Q6H PRN PRN Reason: mild anxiety Last Admin: 08/24/25 09:11 Dose: 50 mg Ibuprofen (Ibuprofen 800 Mg Tablet) 800 mg PO Q8H PRN PRN Reason: severe pain Last Admin: 08/23/25 17:59 Dose: 800 mg Levetiracetam (Levetiracetam 500 Mg Tablet) 500 mg PO BID [facility] Last Admin: 08/24/25 08:40 Dose: 500 mg Magnesium Hydroxide (Milk Of Magnesia 30 Ml Oral.Susp) 30 ml PO DAILY PRN PRN Reason: Constipation Melatonin (Melatonin 3 Mg Tablet) 9 mg PO BEDTIME [facility] Last Admin: 08/23/25 20:19 Dose: 9 mg Nicotine (Nicotine 14 Mg Patch.Td24) 14 mg TRANSDERMA DAILY PRN PRN Reason: nicotine craving Nicotine Polacrilex (Nicotine Polacrilex 2 Mg Gum) 2 mg BUCCAL Q2H PRN PRN Reason: Nicotine Cravings Olanzapine (Olanzapine 5 Mg Tablet) 5 mg PO BID PRN PRN Reason: agitation Last Admin: 08/24/25 09:11 Dose: 5 mg Trazodone HCl (Trazodone Hcl 50 Mg Tablet) 50 mg PO BEDTIME MRX1 PRN PRN Reason: Insomnia Allergies Allergies Allergy/AdvReac Type Severity Reaction Status Date / Time No Known Drug Allergies (NO Allergy Mild NONE Verified 08/18/25 15:10 KNOWN DRUG ALLERGIES) Assessment & Plan Assessment & Plan (1) Major depressive disorder, recurrent, unspecified: Status: Acute Code(s): F33.9 - Major depressive disorder, recurrent, unspecified (2) Chronic back pain: Status: Acute Code(s): M54.9 - Dorsalgia, unspecified; G89.29 - Other chronic pain (3) Seizure disorder: Status: Acute Code(s): G40.909 - Epilepsy, unspecified, not intractable, without status epilepticus (4) HTN (hypertension): Status: Acute Code(s): I10 - Essential (primary) hypertension (5) Overdose by ingestion: Status: Acute Code(s): T50.901A - Poisoning by unspecified drugs, medicaments and biological substances, accidental (unintentional), initial encounter Plan Medical floor at [facility] HPI: Patient is is 44 years old single, Mauritanian speaking male with history of depression, polysubstance use disorder, chronic sciatic back pain, seizure disorder, hypertension, restless leg syndrome who presented to ED on August 19 stating that he had ingested 60 Keppra tablets prior to arrival. Also reports he was having thoughts of cutting himself. Precipitant: Patient was just released from incarceration on 08/17 and was not able to get Suboxone prescription filled due to not having ID. Patient stated that he and his litigation attorney told prescriber that this is was going to be a problem but states that he was ignored. Patient also states that he had a seizure episode prior to be admitted. Patient was agitated at that time due to wanting to leave even though acknowledged saying that he still have same stressors that led into overdose including lack of housing when he was sectioned 12. Formulation/clinical reasoning: Limited support in community. No family support. Just released from care home, no outpatient providers. Homeless, no jobs, increased anxiety and depression, with poor sleep overdose on Keppra, and also have plan to cut himself. Not able to feel his Suboxone due to have no idea after released from care home. History of depression, polysubstance use, history of aggressive behavior. Given above information, patient will benefit in restrictive environment for his own safety, medication management, and refer patient to outpatient psychiatry services as aftercare. Hospital course: 08/22/25: Continue with home medication/ or medication was started from the ED/Medical floor Suboxone 8/2 film-2 films daily in the morning Due to withdrawal symptoms from extra Suboxone he bought from a friend, we will at Suboxone 4 mg daily at 15:00. Today is his 2nd dose. We will continue to titrate up to 24 mg. Gabapentin 600 t.i.d. for nerve pain/mood-newly started from [employer]. Melatonin 9 mg at bedtime for insomnia. With trazodone as needed Flexeril 5 mg t.i.d. p.r.n. for muscle spasm. Vistaril 50 q.4 6 hours p.r.n. for anxiety. Keppra 500 twice a day for seizure. Motrin 800 t.i.d. for severe pain. We will reassess if patient is willing to start on antidepressants for depression anxiety. 08/23/25: Report anxiety /10, depression a 10. Continue reporting W/D from Suboxone which he bought extra in care home. Discuss with him to increase up to total of 24mg as home dose. Report it also helps with pain which he rates it an 10. Denies SI/SIB/HI/AVH Per nursing, meds compliant and slept for 7 hours. Continue with current plan Increase Suboxone up to total 24mg daily in divided dose for pain. Pending Keppra level. 08/24/25:Patient reports slept better last night as Suboxone increased up to total 24mg for pain. however, he asked to have Gabapentin up to total of 2,400mg daily that he used to take from care home. Patient is aware that this provider will not change Gabapentin but discussed with patient medications especially [place] regarding unspecified Bipolar. Patient cannot make decision but states that he would call and ask his sister regarding [place] as she also takes it and will update this provider to contact his RN to let staff know if he is willingly to start. Denies SI/SIB/HI/AVH. Medication seeking behaviors but pleasant and cooperative, somewhat understandable regarding meds not prescribed. Per nursing, slept for 8 hours, compliant with meds. napping after breakfast. Continue with current tx plan. Plan Patient on 15 minute checks for safety. Admitted to M5. CV. Work with treatment team to do collateral.. Refer to patient to store operations specialist: decline Contact the hospitalist regarding hospitalist consultation on admission: seen. Patient educated on: diagnosis, medication risk/benefits, substance abuse and therapeutic strategies Reason for continued inpatient stay Substantial Risk for: harm to self and med/psych decompensation Time Spent With Patient Time: Total time managing care of this patient today ____ minutes.
[2025-08-24 20:15] VITALS: BP 135/88; PULSE 118; RESP 18; TEMP 37.4; O2SAT 97
[2025-08-25] MEDS: Nicotine 14 MG PATCH.TD24 TRANSDERMA (03:27)
[2025-08-25 08:00] VITALS: BP 129/60; PULSE 91; RESP 16; TEMP 36.3; O2SAT 96
[2025-08-25] MEDS: Buprenorphine/Naloxone 4/1 mg FILM 1 FILM SUBLINGUAL ×2 (14:31→20:20)
[2025-08-25 20:42] VITALS: BP 152/94; PULSE 104; RESP 18; TEMP 36.6; O2SAT 96
--- NOTE | 2025-08-25 21:04 | P.PNPSI_ITS ---
Subjective Subjective Date of Service: 08/25/25 Reason For Visit: SI Subjective Notes: Conditional Voluntary Healthcare Proxy: No Guardianship: No Medical Problems Affecting Mental Status: No Interim History: Medical record and nursing notes reviewed; case discussed during rounds with team/nursing staff, and met with patient for supportive therapy/psychoeducation, as well as medication management. Met with patient in assigned room, patient was sleeping but arousable. Reports depression is always there and high on anxiety. Patient agreed to start lithium. Is aware of blood work related to lithium, and associated symptoms. The pain is better. Denies safety concerns. Per nurse, patient slept for 6 hours, compliant with medication, denies side effects. Incongruent with mood. Continue with current plan. Encourage groups Medication Compliance: Yes Side effects from medications: No Attending Groups: No Review of Systems Acute medical concerns: No Medical Review of Systems: unchanged Review of Systems Review of Systems Denies any shortness of breath, chest pain, headaches, dysuria, abdominal pain or discomfort, nausea, vomiting or diarrhea. Denies fever or chills. Mental Status Exam Mental Status Exam Narrative: Patient is A+Ox4, wearing casual attirre,Overweight, no ADL's issues. Anxious, depressed but pleasant and cooperative. Able to advocate for self. Speech WNI, normal rate and volume, and honest. Thought process is WNL, organized, and linear. Thought content without SI/SIB/HI/AVH. Future focus and treatment oriented. No delusional, paranoid statements make. Fair judgment and insight. Diagnostics Vital Signs (24Hr): Vital Signs - 24 hr 08/25/25 08:00 08/25/25 20:42 Temperature 97.4 F 98 F Pulse Rate 91 104 H Respiratory Rate 16 18 Blood Pressure 129/60 152/94 H Pulse Oximetry 96 96 Oxygen Delivery Method Room Air Room Air BMI result Body Mass Index 52.0 Labs 08/22/25 10:47 Medications Medications Current Medications Acetaminophen (Acetaminophen 325 Mg Tablet) 650 mg PO Q6H PRN PRN Reason: Headache/Pain, Scale 1-10 Last Admin: 08/23/25 20:21 Dose: 650 mg Al Hydroxide/Mg Hydroxide (Magnesium Hydrox/Alum Hydrox 30 Ml Oral.Susp) 30 ml PO Q6H PRN PRN Reason: Heartburn/Nausea Atorvastatin Calcium (Atorvastatin Calcium 40 Mg Tablet) 40 mg PO DAILY [facility] Last Admin: 08/25/25 10:00 Dose: 40 mg Buprenorphine/Naloxone (Buprenorphine/Naloxone 8/2 Mg Film) 2 film SUBLINGUAL DAILY [facility] Last Admin: 08/25/25 10:00 Dose: 2 film Buprenorphine/Naloxone (Buprenorphine/Naloxone 4/1 Mg Film) 1 film SUBLINGUAL DAILY@1500,2100 [facility] Last Admin: 08/25/25 20:20 Dose: 1 film Cyclobenzaprine HCl (Cyclobenzaprine Hcl 5 Mg Tablet) 5 mg PO TID PRN PRN Reason: Muscle Spasm Last Admin: 08/25/25 20:23 Dose: 5 mg Gabapentin (Gabapentin 600 Mg Tablet) 600 mg PO TID [facility] Last Admin: 08/25/25 20:20 Dose: 600 mg Hydroxyzine HCl (Hydroxyzine Hcl 50 Mg Tablet) 50 mg PO Q6H PRN PRN Reason: mild anxiety Last Admin: 08/25/25 20:23 Dose: 50 mg Ibuprofen (Ibuprofen 800 Mg Tablet) 800 mg PO Q8H PRN PRN Reason: severe pain Last Admin: 08/23/25 17:59 Dose: 800 mg Levetiracetam (Levetiracetam 500 Mg Tablet) 500 mg PO BID [facility] Last Admin: 08/25/25 20:21 Dose: 500 mg Pinon Carbonate (Pinon Carbonate Er 300 Mg Tablet.Er) 600 mg PO BEDTIME [facility] Last Admin: 08/25/25 20:21 Dose: 600 mg Magnesium Hydroxide (Milk Of Magnesia 30 Ml Oral.Susp) 30 ml PO DAILY PRN PRN Reason: Constipation Melatonin (Melatonin 3 Mg Tablet) 9 mg PO BEDTIME [facility] Last Admin: 08/25/25 20:22 Dose: 9 mg Nicotine (Nicotine 14 Mg Patch.Td24) 14 mg TRANSDERMA DAILY PRN PRN Reason: nicotine craving Last Admin: 08/25/25 03:27 Dose: 14 mg Nicotine Polacrilex (Nicotine Polacrilex 2 Mg Gum) 2 mg BUCCAL Q2H PRN PRN Reason: Nicotine Cravings Last Admin: 08/25/25 17:42 Dose: 2 mg Olanzapine (Olanzapine 5 Mg Tablet) 5 mg PO BID PRN PRN Reason: agitation Last Admin: 08/25/25 14:27 Dose: 5 mg Trazodone HCl (Trazodone Hcl 50 Mg Tablet) 50 mg PO BEDTIME MRX1 PRN PRN Reason: Insomnia Allergies Allergies Allergy/AdvReac Type Severity Reaction Status Date / Time No Known Drug Allergies (NO Allergy Mild NONE Verified 08/18/25 15:10 KNOWN DRUG ALLERGIES) Assessment & Plan Assessment & Plan (1) Major depressive disorder, recurrent, unspecified: Status: Acute Code(s): F33.9 - Major depressive disorder, recurrent, unspecified (2) Chronic back pain: Status: Acute Code(s): M54.9 - Dorsalgia, unspecified; G89.29 - Other chronic pain (3) Seizure disorder: Status: Acute Code(s): G40.909 - Epilepsy, unspecified, not intractable, without status epilepticus (4) HTN (hypertension): Status: Acute Code(s): I10 - Essential (primary) hypertension (5) Overdose by ingestion: Status: Acute Code(s): T50.901A - Poisoning by unspecified drugs, medicaments and biological substances, accidental (unintentional), initial encounter Plan Medical floor at [facility] HPI: Patient is is 44 years old single, Citizen [place] speaking male with history of depression, polysubstance use disorder, chronic sciatic back pain, seizure disorder, hypertension, restless leg syndrome who presented to ED on August 19 stating that he had ingested 60 Keppra tablets prior to arrival. Also reports he was having thoughts of cutting himself. Precipitant: Patient was just released from incarceration on 08/17 and was not able to get Suboxone prescription filled due to not having ID. Patient stated that he and his assistant city attorney told prescriber that this is was going to be a problem but states that he was ignored. Patient also states that he had a seizure episode prior to be admitted. Patient was agitated at that time due to wanting to leave even though acknowledged saying that he still have same stressors that led into overdose including lack of housing when he was sectioned 12. Formulation/clinical reasoning: Limited support in community. No family support. Just released from assisted, no outpatient providers. Homeless, no jobs, increased anxiety and depression, with poor sleep overdose on Keppra, and also have plan to cut himself. Not able to feel his Suboxone due to have no idea after released from assisted. History of depression, polysubstance use, history of aggressive behavior. Given above information, patient will benefit in restrictive environment for his own safety, medication management, and refer patient to outpatient psychiatry services as aftercare. Hospital course: 08/22/25: Continue with home medication/ or medication was started from the ED/Medical floor Suboxone 8/2 film-2 films daily in the morning Due to withdrawal symptoms from extra Suboxone he bought from a friend, we will at Suboxone 4 mg daily at 15:00. Today is his 2nd dose. We will continue to titrate up to 24 mg. Gabapentin 600 t.i.d. for nerve pain/mood-newly started from [facility]. Melatonin 9 mg at bedtime for insomnia. With trazodone as needed Flexeril 5 mg t.i.d. p.r.n. for muscle spasm. Vistaril 50 q.4 6 hours p.r.n. for anxiety. Keppra 500 twice a day for seizure. Motrin 800 t.i.d. for severe pain. We will reassess if patient is willing to start on antidepressants for depression anxiety. 08/23/25: Report anxiety 06/06, depression a 04/05. Continue reporting W/D from Suboxone which he bought extra in assisted. Discuss with him to increase up to total of 24mg as home dose. Report it also helps with pain which he rates it an 05/06. Denies SI/SIB/HI/AVH Per nursing, meds compliant and slept for 7 hours. Continue with current plan Increase Suboxone up to total 24mg daily in divided dose for pain. Pending Keppra level. 08/24/25:Patient reports slept better last night as Suboxone increased up to total 24mg for pain. however, he asked to have Gabapentin up to total of 2,400mg daily that he used to take from assisted. Patient is aware that this provider will not change Gabapentin but discussed with patient medications especially [place] regarding unspecified Bipolar. Patient cannot make decision but states that he would call and ask his sister regarding [place] as she also takes it and will update this provider to contact his RN to let staff know if he is willingly to start. Denies SI/SIB/HI/AVH. Medication seeking behaviors but pleasant and cooperative, somewhat understandable regarding meds not prescribed. Per nursing, slept for 8 hours, compliant with meds. napping after breakfast. Continue with current tx plan. 08/25/25: Met with patient in assigned room, patient was sleeping but arousable. Reports depression is always there and high on anxiety. Patient agreed to start lithium. Is aware of blood work related to lithium, and associated symptoms. The pain is better. Denies safety concerns. Per nurse, patient slept for 6 hours, compliant with medication, denies side effects. Incongruent with mood. Continue with current plan. Encourage groups Start Pinon 600mg PO at HS. Plan Patient on 15 minute checks for safety. Admitted to . CV. Work with treatment team to do collateral.. Refer to patient to release specialist: decline Contact the hospitalist regarding hospitalist consultation on admission: seen. Patient educated on: diagnosis, medication risk/benefits, substance abuse and therapeutic strategies Informed Consent: understands and further education needed Reason for continued inpatient stay Substantial Risk for: med/psych decompensation Time Spent With Patient Time: Total time managing care of this patient today ____ minutes.
[2025-08-26 03:53] LABS: Levetiracetam Keppra 8.5 mcg/mL (10.0-40.0)
[2025-08-26 08:00] VITALS: BP 141/60; PULSE 94; TEMP 36.9; O2SAT 97
[2025-08-26] MEDS: Buprenorphine/Naloxone 4/1 mg FILM 1 FILM SUBLINGUAL ×2 (14:34→20:31)
[2025-08-26 19:53] VITALS: BP 156/74; PULSE 97; RESP 15; TEMP 37.1; O2SAT 98
--- NOTE | 2025-08-26 21:32 | P.PNPSI_ITS ---
Subjective Subjective Date of Service: 08/26/25 Reason For Visit: SI Subjective Notes: Conditional Voluntary Healthcare Proxy: No Guardianship: No Medical Problems Affecting Mental Status: No Interim History: Medical record and nursing notes reviewed; case discussed during rounds with team/nursing staff, and met with patient for supportive therapy/psychoeducation, as well as medication management. Patient was in the patient's phone area, request to leave early as soon as possible. Patient reports he has a place to go to and know a friend who can get him the the intermediate. 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 Report if [place] is a reason to hold him back, he then will refuse to take it tonight. Advised patient to continue taking meds and will discuss with treatment team if we can discharge him early this week. Patient understands the important of having FLU appointment with OP provider for a safe discharge as he needs to continue with all medication prescribed here. Patient reports that he feels regret with the overdose prior to coming here. Report he was out of group home, it was cold out and he did not get sleep for 3 nights, and has no where to go and not able to get his suboxone were the cause of him trying to take his life away. Patient has not reported suicide thoughts since admitted here on the unit. Not attend group but engaged, pleasant and cooperative. Report less anxious and depressed. He would feel safe outside if discharge. He understands that SW also needs time to make FLU appointment and that he can get [place] level /blood work done with PCP/OP provider. No SI/SIB/HI/AVH. No unsafe behavior, no aggressive mood. No issues with sleep or appetite. Continue to improve. Continue with treatment plan. Medication Compliance: Yes Side effects from medications: No Attending Groups: No Review of Systems Acute medical concerns: No Medical Review of Systems: unchanged Review of Systems Review of Systems Denies any shortness of breath, chest pain, headaches, dysuria, abdominal pain or discomfort, nausea, vomiting or diarrhea. Denies fever or chills. Mental Status Exam Mental Status Exam Narrative: Patient is A+Ox4, wearing casual attirre,Overweight, no ADL's issues. Anxious, depressed but pleasant and cooperative. Able to advocate for self. Speech WNI, normal rate and volume, and honest. Thought process is WNL, organized, and linear. Thought content without SI/SIB/HI/AVH. Future focus and treatment oriented. No delusional, paranoid statements make. Fair judgment and insight. Diagnostics Vital Signs (24Hr): Vital Signs - 24 hr 08/26/25 08:00 08/26/25 19:53 Temperature 98.4 F 98.7 F Pulse Rate 94 97 Respiratory Rate 15 Blood Pressure 141/60 H 156/74 H Pulse Oximetry 97 98 Oxygen Delivery Method Room Air BMI result Body Mass Index 52.0 Labs 08/22/25 10:47 Labs: Laboratory Results - last 48 hr 08/23/25 09:31 Levetiracetam 8.5 L Medications Medications Current Medications Acetaminophen (Acetaminophen 325 Mg Tablet) 650 mg PO Q6H PRN PRN Reason: Headache/Pain, Scale 1-10 Last Admin: 08/23/25 20:21 Dose: 650 mg Al Hydroxide/Mg Hydroxide (Magnesium Hydrox/Alum Hydrox 30 Ml Oral.Susp) 30 ml PO Q6H PRN PRN Reason: Heartburn/Nausea Atorvastatin Calcium (Atorvastatin Calcium 40 Mg Tablet) 40 mg PO DAILY [facility] Last Admin: 08/26/25 10:08 Dose: 40 mg Buprenorphine/Naloxone (Buprenorphine/Naloxone 8/2 Mg Film) 2 film SUBLINGUAL DAILY [facility] Last Admin: 08/26/25 10:08 Dose: 2 film Buprenorphine/Naloxone (Buprenorphine/Naloxone 4/1 Mg Film) 1 film SUBLINGUAL DAILY@1500,2100 [facility] Last Admin: 08/26/25 20:31 Dose: 1 film Cyclobenzaprine HCl (Cyclobenzaprine Hcl 5 Mg Tablet) 5 mg PO TID PRN PRN Reason: Muscle Spasm Last Admin: 08/26/25 20:26 Dose: 5 mg Gabapentin (Gabapentin 600 Mg Tablet) 600 mg PO TID [facility] Last Admin: 08/26/25 20:26 Dose: 600 mg Hydroxyzine HCl (Hydroxyzine Hcl 50 Mg Tablet) 50 mg PO Q6H PRN PRN Reason: mild anxiety Last Admin: 08/26/25 20:27 Dose: 50 mg Ibuprofen (Ibuprofen 800 Mg Tablet) 800 mg PO Q8H PRN PRN Reason: severe pain Last Admin: 08/23/25 17:59 Dose: 800 mg Levetiracetam (Levetiracetam 500 Mg Tablet) 500 mg PO BID [facility] Last Admin: 08/26/25 20:26 Dose: 500 mg [place] Carbonate ([place] Carbonate Er 300 Mg Tablet.Er) 600 mg PO BEDTIME [facility] Last Admin: 08/26/25 20:26 Dose: 600 mg Magnesium Hydroxide (Milk Of Magnesia 30 Ml Oral.Susp) 30 ml PO DAILY PRN PRN Reason: Constipation Melatonin (Melatonin 3 Mg Tablet) 9 mg PO BEDTIME [facility] Last Admin: 08/26/25 20:26 Dose: 9 mg Nicotine (Nicotine 14 Mg Patch.Td24) 14 mg TRANSDERMA DAILY PRN PRN Reason: nicotine craving Last Admin: 08/25/25 03:27 Dose: 14 mg Nicotine Polacrilex (Nicotine Polacrilex 2 Mg Gum) 2 mg BUCCAL Q2H PRN PRN Reason: Nicotine Cravings Last Admin: 08/26/25 14:03 Dose: 2 mg Olanzapine (Olanzapine 5 Mg Tablet) 5 mg PO BID PRN PRN Reason: agitation Last Admin: 08/26/25 14:02 Dose: 5 mg Trazodone HCl (Trazodone Hcl 50 Mg Tablet) 50 mg PO BEDTIME MRX1 PRN PRN Reason: Insomnia Last Admin: 08/26/25 20:27 Dose: 50 mg Allergies Allergies Allergy/AdvReac Type Severity Reaction Status Date / Time No Known Drug Allergies (NO Allergy Mild NONE Verified 08/18/25 15:10 KNOWN DRUG ALLERGIES) Assessment & Plan Assessment & Plan (1) Major depressive disorder, recurrent, unspecified: Status: Acute Code(s): F33.9 - Major depressive disorder, recurrent, unspecified (2) Chronic back pain: Status: Acute Code(s): M54.9 - Dorsalgia, unspecified; G89.29 - Other chronic pain (3) Seizure disorder: Status: Acute Code(s): G40.909 - Epilepsy, unspecified, not intractable, without status epilepticus (4) HTN (hypertension): Status: Acute Code(s): I10 - Essential (primary) hypertension (5) Overdose by ingestion: Status: Acute Code(s): T50.901A - Poisoning by unspecified drugs, medicaments and biological substances, accidental (unintentional), initial encounter Plan Medical floor at [facility] HPI: Patient is is 44 years old single, [place] speaking male with history of depression, polysubstance use disorder, chronic sciatic back pain, seizure disorder, hypertension, restless leg syndrome who presented to ED on August 19 stating that he had ingested 60 Keppra tablets prior to arrival. Also reports he was having thoughts of cutting himself. Precipitant: Patient was just released from incarceration on 08/17 and was not able to get Suboxone prescription filled due to not having ID. Patient stated that he and his timber selector told prescriber that this is was going to be a problem but states that he was ignored. Patient also states that he had a seizure episode prior to be admitted. Patient was agitated at that time due to wanting to leave even though acknowledged saying that he still have same stressors that led into overdose including lack of housing when he was sectioned 12. Formulation/clinical reasoning: Limited support in community. No family support. Just released from group home, no outpatient providers. Homeless, no jobs, increased anxiety and depression, with poor sleep overdose on Keppra, and also have plan to cut himself. Not able to feel his Suboxone due to have no idea after released from group home. History of depression, polysubstance use, history of aggressive behavior. Given above information, patient will benefit in restrictive environment for his own safety, medication management, and refer patient to outpatient psychiatry services as aftercare. Hospital course: 08/22/25: Continue with home medication/ or medication was started from the ED/Medical floor Suboxone 8/2 film-2 films daily in the morning Due to withdrawal symptoms from extra Suboxone he bought from a friend, we will at Suboxone 4 mg daily at 15:00. Today is his 2nd dose. We will continue to titrate up to 24 mg. Gabapentin 600 t.i.d. for nerve pain/mood-newly started from [facility]. Melatonin 9 mg at bedtime for insomnia. With trazodone as needed Flexeril 5 mg t.i.d. p.r.n. for muscle spasm. Vistaril 50 q.4 6 hours p.r.n. for anxiety. Keppra 500 twice a day for seizure. Motrin 800 t.i.d. for severe pain. We will reassess if patient is willing to start on antidepressants for depression anxiety. 08/23/25: Report anxiety 06/06, depression a 04/05. Continue reporting W/D from Suboxone which he bought extra in group home. Discuss with him to increase up to total of 24mg as home dose. Report it also helps with pain which he rates it an /. Denies SI/SIB/HI/AVH Per nursing, meds compliant and slept for 7 hours. Continue with current plan Increase Suboxone up to total 24mg daily in divided dose for pain. Pending Keppra level. 08/24/25:Patient reports slept better last night as Suboxone increased up to total 24mg for pain. however, he asked to have Gabapentin up to total of 2,400mg daily that he used to take from group home. Patient is aware that this provider will not change Gabapentin but discussed with patient medications especially [place] regarding unspecified Bipolar. Patient cannot make decision but states that he would call and ask his sister regarding [place] as she also takes it and will update this provider to contact his RN to let staff know if he is willingly to start. Denies SI/SIB/HI/AVH. Medication seeking behaviors but pleasant and cooperative, somewhat understandable regarding meds not prescribed. Per nursing, slept for 8 hours, compliant with meds. napping after breakfast. Continue with current tx plan. 08/25/25: Met with patient in assigned room, patient was sleeping but arousable. Reports depression is always there and high on anxiety. Patient agreed to start lithium. Is aware of blood work related to lithium, and associated symptoms. The pain is better. Denies safety concerns. Per nurse, patient slept for 6 hours, compliant with medication, denies side effects. Incongruent with mood. Continue with current plan. Encourage groups Start [place] 600mg PO at HS. 08/26/25: Patient was in the patient's phone area, request to leave early as soon as possible. Patient reports he has a place to go to and know a friend who can get him the the intermediate. Report that he can sweet pickled fruit maker his suboxone with anyone's ID -not necessary to use his ID. Report if [place] is a reason to hold him back, he then will refuse to take it tonight. Advised patient to continue taking meds and will discuss with treatment team if we can discharge him early this week. Patient understands the important of having FLU appointment with OP provider for a safe discharge as he needs to continue with all medication prescribed here. Patient reports that he feels regret with the overdose prior to coming here. Report he was out of group home, it was cold out and he did not get sleep for 3 nights, and has no where to go and not able to get his suboxone were the cause of him trying to take his life away. Patient has not reported suicide thoughts since admitted here on the unit. Not attend group but engaged, pleasant and cooperative. Report less anxious and depressed. He would feel safe outside if discharge. He understands that SW also needs time to make FLU appointment and that he can get [place] level /blood work done with PCP/OP provider. No SI/SIB/HI/AVH. No unsafe behavior, no aggressive mood. No issues with sleep or appetite. Continue to improve. Continue with treatment plan. Plan Patient on 15 minute checks for safety. Admitted to M5. CV. Work with treatment team to do collateral.. Refer to patient to software testing specialist: decline Contact the hospitalist regarding hospitalist consultation on admission: seen. Patient educated on: diagnosis, medication risk/benefits, substance abuse and therapeutic strategies Informed Consent: understands Reason for continued inpatient stay Substantial Risk for: med/psych decompensation Time Spent With Patient Time: Total time managing care of this patient today ____ minutes.
[2025-08-26] MEDS: Nicotine 14 MG PATCH.TD24 TRANSDERMA (22:01)
[2025-08-27 08:00] VITALS: BP 130/62; PULSE 86; RESP 18; TEMP 37.1; O2SAT 98
[2025-08-27] MEDS: Nicotine 14 MG PATCH.TD24 TRANSDERMA (08:41)
--- NOTE | 2025-08-27 09:40 | HO.PSYCHPN ---
Subjective Subjective Date of Service: 08/27/25 Reason For Visit: SI Interim History: met with pt; discussed with team; reviewed chart Patient friendly and cooperative; he has been in good behavioral and impulse control on the unit. Pt Told staff... i never wanted to kill myself...i looked it up...i knew those meds would not kill me...i was just cold and wanted a bed... He told SW today that he only actually took only 3 tabs and flushed the other 60 down the toilet; reiterated that once out of alf, [facility] and so looking for a place to stay, went to more than one ED, until got to [facility] and said he overdosed. Patient tells policy writer the same thing, that when he went to [facility] [employer] his Suboxone he did not have an ID started to go into withdrawal; [place] [facility] [place] got turned away went to an ED got turned away and so he said had to do what I had to do... I know it is bad but I had slept 2 days out in the cold... He reiterates that he was never suicidal at all. He is asking for discharge now, saying he has a place to go and he also has help getting his medications and will be able to use a friend's ID. Patient said he does not need to be in the hospital. He would like refills on gabapentin which he says he had been on for years in care home and was restarted on in [facility]; he would like a prescription for Keppra and additional script for extra Suboxone that was started during this admission; he says he has enough of his other medications, statin and does not want lithium. Patient asked for only 1 week of scripts however policy writer gave 2 weeks just in case. Assembling Inspector discussed case with JENN Olivera who admitted patient and has followed him on the unit and who agrees that patient is at baseline, safe, not suicidal and appropriate to return to the community for treatment. Mental Status Exam Mental Status Exam Narrative: Pt is alert and oriented; behavior is cooperative, friendly and calm; patient is not in distress; dressed in casual attire, glasses, tattoos; unkempt hair but adequate hygiene; mood is described as good and affect congruent; eye contact appropriate; Speech is normal rate, volume and prosody and not pressured; no psychomotor agitation/retardation present; thought process is organized and goal directed; Thought content is on tx; otherwise pertinent to relevant topics and without any delusional content, paranoid ideations or grandiosity; denies any SI/HI. Denies AVH and there is no evidence of perceptual disturbance. Patients insight and judgment appear intact. Diagnostics Vital Signs (24Hr): Vital Signs - 24 hr 08/26/25 19:53 08/27/25 08:00 Temperature 98.7 F 98.7 F Pulse Rate 97 86 Respiratory Rate 15 18 Blood Pressure 156/74 H 130/62 Pulse Oximetry 98 98 Oxygen Delivery Method Room Air BMI result Body Mass Index 52.0 Labs 08/22/25 10:47 Labs: Laboratory Results - last 48 hr 08/23/25 09:31 Levetiracetam 8.5 L Medications Medications Current Medications Acetaminophen (Acetaminophen 325 Mg Tablet) 650 mg PO Q6H PRN PRN Reason: Headache/Pain, Scale 1-10 Last Admin: 08/23/25 20:21 Dose: 650 mg Al Hydroxide/Mg Hydroxide (Magnesium Hydrox/Alum Hydrox 30 Ml Oral.Susp) 30 ml PO Q6H PRN PRN Reason: Heartburn/Nausea Atorvastatin Calcium (Atorvastatin Calcium 40 Mg Tablet) 40 mg PO DAILY [facility] Last Admin: 08/27/25 08:37 Dose: 40 mg Buprenorphine/Naloxone (Buprenorphine/Naloxone 8/2 Mg Film) 2 film SUBLINGUAL DAILY [facility] Last Admin: 08/27/25 08:38 Dose: 2 film Buprenorphine/Naloxone (Buprenorphine/Naloxone 4/1 Mg Film) 1 film SUBLINGUAL DAILY@1500,2100 [facility] Last Admin: 08/26/25 20:31 Dose: 1 film Cyclobenzaprine HCl (Cyclobenzaprine Hcl 5 Mg Tablet) 5 mg PO TID PRN PRN Reason: Muscle Spasm Last Admin: 08/27/25 08:41 Dose: 5 mg Gabapentin (Gabapentin 600 Mg Tablet) 600 mg PO TID [facility] Last Admin: 08/27/25 08:37 Dose: 600 mg Hydroxyzine HCl (Hydroxyzine Hcl 50 Mg Tablet) 50 mg PO Q6H PRN PRN Reason: mild anxiety Last Admin: 08/27/25 08:42 Dose: 50 mg Ibuprofen (Ibuprofen 800 Mg Tablet) 800 mg PO Q8H PRN PRN Reason: severe pain Last Admin: 08/23/25 17:59 Dose: 800 mg Levetiracetam (Levetiracetam 500 Mg Tablet) 500 mg PO BID [facility] Last Admin: 08/27/25 08:37 Dose: 500 mg [place] Carbonate ([place] Carbonate Er 300 Mg Tablet.Er) 600 mg PO BEDTIME [facility] Last Admin: 08/26/25 20:26 Dose: 600 mg Magnesium Hydroxide (Milk Of Magnesia 30 Ml Oral.Susp) 30 ml PO DAILY PRN PRN Reason: Constipation Melatonin (Melatonin 3 Mg Tablet) 9 mg PO BEDTIME [facility] Last Admin: 08/26/25 20:26 Dose: 9 mg Nicotine (Nicotine 14 Mg Patch.Td24) 14 mg TRANSDERMA DAILY PRN PRN Reason: nicotine craving Last Admin: 08/27/25 08:41 Dose: 14 mg Nicotine Polacrilex (Nicotine Polacrilex 2 Mg Gum) 2 mg BUCCAL Q2H PRN PRN Reason: Nicotine Cravings Last Admin: 08/27/25 08:46 Dose: 2 mg Olanzapine (Olanzapine 5 Mg Tablet) 5 mg PO BID PRN PRN Reason: agitation Last Admin: 08/26/25 22:01 Dose: 5 mg Trazodone HCl (Trazodone Hcl 50 Mg Tablet) 50 mg PO BEDTIME MRX1 PRN PRN Reason: Insomnia Last Admin: 08/26/25 22:00 Dose: 50 mg Allergies Allergies Allergy/AdvReac Type Severity Reaction Status Date / Time No Known Drug Allergies (NO Allergy Mild NONE Verified 08/18/25 15:10 KNOWN DRUG ALLERGIES) Assessment & Plan Assessment & Plan (1) Major depressive disorder, recurrent, unspecified: Status: Acute Code(s): F33.9 - Major depressive disorder, recurrent, unspecified (2) Chronic back pain: Status: Acute Code(s): M54.9 - Dorsalgia, unspecified; G89.29 - Other chronic pain (3) Seizure disorder: Status: Acute Code(s): G40.909 - Epilepsy, unspecified, not intractable, without status epilepticus (4) HTN (hypertension): Status: Acute Code(s): I10 - Essential (primary) hypertension (5) Overdose by ingestion: Status: Acute Code(s): T50.901A - Poisoning by unspecified drugs, medicaments and biological substances, accidental (unintentional), initial encounter (6) Adjustment disorder with mixed disturbance of emotions and conduct: Status: Acute Code(s): F43.25 - Adjustment disorder with mixed disturbance of emotions and conduct Plan Medical floor at [facility] HPI: Patient is is 44 years old single, [place] speaking male with history of depression, polysubstance use disorder, chronic sciatic back pain, seizure disorder, hypertension, restless leg syndrome who presented to ED on August 19 stating that he had ingested 60 Keppra tablets prior to arrival. Also reports he was having thoughts of cutting himself. Precipitant: Patient was just released from incarceration on 08/17 and was not able to get Suboxone prescription filled due to not having ID. Patient stated that he and his real estate attorney told prescriber that this is was going to be a problem but states that he was ignored. Patient also states that he had a seizure episode prior to be admitted. Patient was agitated at that time due to wanting to leave even though acknowledged saying that he still have same stressors that led into overdose including lack of housing when he was sectioned 12. Formulation/clinical reasoning: Limited support in community. No family support. Just released from alf, no outpatient providers. Homeless, no jobs, increased anxiety and depression, with poor sleep overdose on Keppra, and also have plan to cut himself. Not able to feel his Suboxone due to have no idea after released from alf. History of depression, polysubstance use, history of aggressive behavior. Given above information, patient will benefit in restrictive environment for his own safety, medication management, and refer patient to outpatient psychiatry services as aftercare. Hospital course: 08/22/25: Continue with home medication/ or medication was started from the ED/Medical floor Suboxone 8/2 film-2 films daily in the morning Due to withdrawal symptoms from extra Suboxone he bought from a friend, we will at Suboxone 4 mg daily at 15:00. Today is his 2nd dose. We will continue to titrate up to 24 mg. Gabapentin 600 t.i.d. for nerve pain/mood-newly started from [facility]. Melatonin 9 mg at bedtime for insomnia. With trazodone as needed Flexeril 5 mg t.i.d. p.r.n. for muscle spasm. Vistaril 50 q.4 6 hours p.r.n. for anxiety. Keppra 500 twice a day for seizure. Motrin 800 t.i.d. for severe pain. We will reassess if patient is willing to start on antidepressants for depression anxiety. 08/23/25: Report anxiety /, depression a 04/05. Continue reporting W/D from Suboxone which he bought extra in alf. Discuss with him to increase up to total of 24mg as home dose. Report it also helps with pain which he rates it an 05/06. Denies SI/SIB/HI/AVH Per nursing, meds compliant and slept for 7 hours. Continue with current plan Increase Suboxone up to total 24mg daily in divided dose for pain. Pending Keppra level. 08/24/25:Patient reports slept better last night as Suboxone increased up to total 24mg for pain. however, he asked to have Gabapentin up to total of 2,400mg daily that he used to take from alf. Patient is aware that this provider will not change Gabapentin but discussed with patient medications especially [place] regarding unspecified Bipolar. Patient cannot make decision but states that he would call and ask his sister regarding [place] as she also takes it and will update this provider to contact his RN to let staff know if he is willingly to start. Denies SI/SIB/HI/AVH. Medication seeking behaviors but pleasant and cooperative, somewhat understandable regarding meds not prescribed. Per nursing, slept for 8 hours, compliant with meds. napping after breakfast. Continue with current tx plan. 08/25/25: Met with patient in assigned room, patient was sleeping but arousable. Reports depression is always there and high on anxiety. Patient agreed to start lithium. Is aware of blood work related to lithium, and associated symptoms. The pain is better. Denies safety concerns. Per nurse, patient slept for 6 hours, compliant with medication, denies side effects. Incongruent with mood. Continue with current plan. Encourage groups Start [place] 600mg PO at HS. 08/27 Patient friendly and cooperative; he has been in good behavioral and impulse control on the unit. Pt Told staff... i never wanted to kill myself...i looked it up...i knew those meds would not kill me...i was just cold and wanted a bed... He told SW today that he only actually took only 3 tabs and flushed the other 60 down the toilet; reiterated that once out of alf, [facility] and so looking for a place to stay, went to more than one ED, until got to [facility] and said he overdosed. Patient tells policy writer the same thing, that when he went to [facility] his Suboxone he did not have an ID started to go into withdrawal; went [place] got turned away went to an ED got turned away and so he said had to do what I had to do... I know it is bad but I had slept 2 days out in the cold... He reiterates that he was never suicidal at all. He is asking for discharge now, saying he has a place to go and he also has help getting his medications and will be able to use a friend's ID. Patient said he does not need to be in the hospital. He would like refills on gabapentin which he says he had been on for years in care home and was restarted on in [facility]; he would like a prescription for Keppra and additional script for extra Suboxone that was started during this admission; he says he has enough of his other medications, statin and does not want lithium. Patient asked for only 1 week of scripts however policy writer gave 2 weeks just in case. Assembling Inspector discussed case with JENN Olivera who admitted patient and has followed him on the unit and who agrees that patient is at baseline, safe, not suicidal and appropriate to return to the community for treatment. Plan Patient on 15 minute checks for safety. Admitted to . CV. Work with treatment team to do collateral.. Refer to patient to insurance billing specialist: decline Contact the hospitalist regarding hospitalist consultation on admission: seen. Patient educated on: diagnosis, medication risk/benefits, substance abuse and therapeutic strategies Informed Consent: understands Reason for continued inpatient stay Substantial Risk for: stable for discharge Time Spent With Patient Time: Total time managing care of this patient today ____ minutes.
--- NOTE | 2025-08-27 20:46 | P.DS_ITS ---
DS: Providers Provider Date of Service: 08/27/25 Date of admission: 08/21/25 20:35 Date of discharge: 08/27/25 Primary care physician: Joe Calloway MD Attending physician on admission: Taya Olivera Consults: 08/21/25 21:19 Consult to Hospitalist Routine Comment: Consulting Provider: [facility] [place] Hospitalists Reason For Exam: Admission physical Attending physician on discharge: Jarod Vera DS: Diagnosis Discharge Diagnosis (1) Major depressive disorder, recurrent, unspecified: Status: Acute (2) Chronic back pain: Status: Acute (3) Seizure disorder: Status: Acute (4) HTN (hypertension): Status: Acute (5) Overdose by ingestion: Status: Acute DS: Medications Discharge Medications Home Medications: Home Medications ?Medication ?Instructions ?Recorded ?Confirmed atorvastatin 40 mg tablet 40 mg PO DAILY 08/21/2507/29 buprenorphine-naloxone 2 tab PO DAILY 08/21/2507/29 ibuprofen 400 mg tablet 600 mg PO TID PRN fever or p ain 08/21/25 melatonin 5 mg PO BEDTIME PRN Insomnia 08/21/25 08/21/25 Previous Rx's ?Medication ?Instructions ?Recorded acetaminophen 500 mg tablet 1,000 mg (2 x 500 mg) PO Q 6H PRN 08/18/25 (Tylenol Extra Strength) fever or pain #20 tabs buprenorphine 4 mg-naloxone 1 mg 1 film sublingual [place]@1500,2100 08/27/25 sublingual film (Suboxone) 14 days #28 ea gabapentin 600 mg tablet 600 mg PO TID 14 days #42 ta bs 08/27/25 hydroxyzine HCl 50 mg tablet 50 mg PO Q6H PRN mild anx iety 30 08/27/25 days #60 tabs levetiracetam 500 mg tablet 500 mg PO BID 14 days #28 tabs 08/27/25 Mental Status Exam Mental Status Exam Narrative: Patient presents well-groomed, casually dressed. Affect is euthymic with full range. Speech is clear and coherent. Thought process is linear and logical. Thought content is appropriate and relevant. Patient denies suicidal or homicidal ideation intent or plan. No overt psychotic symptoms elicited. Insight is good. Judgment is good. Data Data Completed and Pending Completed studies during hospitalization [Text1]: 08/22/25 08/23/25 10:47 09:31 Sodium 142 Potassium 4.3 Chloride 108 Carbon Dioxide 27 Anion Gap 11 L BUN 12 Creatinine 0.72 Estim Creat Clear Calc 245.0 Estimated GFR > 60 Random Glucose 115 Estimat Average Glucose 111 Hemoglobin A1c % 5.5 Calcium 9.4 Total Bilirubin 0.2 AST 50 H ALT 29 Alkaline Phosphatase 132 H Total Protein 6.9 Albumin 4.1 Triglycerides 176 H Cholesterol 161 LDL Cholesterol, Calc 83 HDL Cholesterol 43 Vitamin B12 505 TSH 0.98 Free T4 1.07 Levetiracetam 8.5 L DS: Summary Hospital Course Hospital Course: Medical floor at [facility] HPI: Patient is is 44 years old single, [place]an speaking male with history of depression, polysubstance use disorder, chronic sciatic back pain, seizure disorder, hypertension, restless leg syndrome who presented to ED on August 19 stating that he had ingested 60 Keppra tablets prior to arrival. Also reports he was having thoughts of cutting himself. Precipitant: Patient was just released from incarceration on 08/17 and was not able to get Suboxone prescription filled due to not having ID. Patient stated that he and his erisa attorney told prescriber that this is was going to be a problem but states that he was ignored. Patient also states that he had a seizure episo de prior to be admitted. Patient was agitated at that time due to wanting to leave even though acknowledged saying that he still have same stressors that led into overdose including lack of housing when he was sectioned 12. Formulation/clinical reasoning: Limited support in community. No family support. Just released from assisted, no outpatient providers. Homeless, no jobs, increased anxiety and depression, with poor sleep overdose on Keppra, and also have plan to cut himself. Not able to feel his Suboxone due to have no idea after released from assisted. History of depression, polysubstance use, history of aggressive behavior. Given above information, patient will benefit in restrictive environment for his own safety, medication management, and refer patient to outpatient psychiatry services as aftercare. Hospital course: 08/22/25: Continue with home medication/ or medication was started from the ED/Medical floor Suboxone 8/2 film-2 films daily in the morning Due to withdrawal symptoms from extra Suboxone he bought from a friend, we will at Suboxone 4 mg daily at 15:00. Today is his 2nd dose. We will continue to titrate up to 24 mg. Gabapentin 600 t.i.d. for nerve pain/mood-newly started from [email or web address]. Melatonin 9 mg at bedtime for insomnia. With trazodone as needed Flexeril 5 mg t.i.d. p.r.n. for muscle spasm. Vistaril 50 q.4 6 hours p.r.n. for anxiety. Keppra 500 twice a day for seizure. Motrin 800 t.i.d. for severe pain. We will reassess if patient is willing to start on antidepressants for depression anxiety. 08/23/25: Report anxiety 06/06, depression a 04/05. Continue reporting W/D from Suboxone which he bought extra in assisted. Discuss with him to increase up to total of 24mg as home dose. Report it also helps with pain which he rates it an 05/06. Denies SI/SIB/HI/AVH Per nursing, meds compliant and slept for 7 hours. Continue with current plan Increase Suboxone up to total 24mg daily in divided dose for pain. Pending Keppra level. 08/24/25:Patient reports slept better last night as Suboxone increased up to total 24mg for pain. however, he asked to have Gabapentin up to total of 2,400mg daily that he used to take from assisted. Patient is aware that this provider will not change Gabapentin but discussed with patient medications especially [place] regarding unspecified Bipolar. Patient cannot make decision but states that he would call and ask his sister regarding [place] as she also takes it and will update this provider to contact his RN to let staff know if he is willingly to start. Denies SI/SIB/HI/AVH. Medication seeking behaviors but pleasant and cooperative, somewhat understandable regarding meds not prescribed. Per nursing, slept for 8 hours, compliant with meds. napping after breakfast. Continue with current tx plan. 08/25/25: Met with patient in assigned room, patient was sleeping but arousable. Reports depression is always there and high on anxiety. Patient agreed to start lithium. Is aware of blood work related to lithium, and associated symptoms. The pain is better. Denies safety concerns. Per nurse, patient slept for 6 hours, compliant with medication, denies side effects. Incongruent with mood. Continue with current plan. Encourage groups Start [place] 600mg PO at HS. 08/26/25: Patient was in the patient's phone area, request to leave early as soon as possible. Patient reports he has a place to go to and know a friend who can get him the the group home. 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 Report if [place] is a reason to hold him back, he then will refuse to take it tonight. Advised patient to continue taking meds and will discuss with treatment team if we can discharge him early this week. Patient understands the important of having FLU appointment with OP provider for a safe discharge as he needs to continue with all medication prescribed here. Patient reports that he feels regret with the overdose prior to coming here. Report he was out of assisted, it was cold out and he did not get sleep for 3 nights, and has no where to go and not able to get his suboxone were the cause of him trying to take his life away. Patient has not reported suicide thoughts since admitted here on the unit. Not attend group but engaged, pleasant and cooperative. Report less anxious and depressed. He would feel safe outside if discharge. He understands that SW also needs time to make FLU appointment and that he can get [place] level /blood work done with PCP/OP provider. No SI/SIB/HI/AVH. No unsafe behavior, no aggressive mood. No issues with sleep or appetite. Continue to improve. Continue with treatment plan. 08/27/25: Told staff... i never wanted to kill myself...i looked it up...i knew those meds would not kill me...i was just cold and wanted a bed... He told SW today that he only actually took 3 tabs and flushed the other 60 down the toliet; reiterated that once out of assisted, [facility] and so looking for a place to stay, went to more than one ED, until got to [facility] and said he overdosed... He is asking to go today, saying he has places to stay; does not want [place]...He has a way to get meds from pharmacy...already has suboxone reiterated the same to this writer editor, telling writer editor that he got out of correction without an ID and so...went to [facility] but turned away told writer editor only needed a week of perscriptions (writer editor gave 2 weeks) Case discussed with SW, this provider and Dr Vera team agrees that patient is at baseline, safe and not suicidal and appropriate to return to the community for treatment. Time spent discussing smoking cessation with patient: 3 to 10 minutes Status at Discharge Cognitive/behavioral status at discharge: CONDITION ON DISCHARGE: CURRENT STATUS IT RELATES TO ADMISSION CRITERIA: Stable, improved. Improvements in depression, anxiety, and suicidal ideation. Improvements in sleep, energy, and appetite. and no hallucination or paranoia /delusional thought. Functional status at discharge: independent ambulation Overall status at discharge: patient is back to baseline Time Spent with Patient Time attestation: Total time managing care of this patient today ____ minutes. 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 [facility] [Other] - 1 Week Referral Note: Ronnie let social work know he plans to follow up with [facility] as needed and that she will continue to support him in the community. [facility] Referral for Psychiatry [Other] - 3-5 Days Referral Note: Ronnie told social work he plans to go to [facility] for psychiatry. Please know they will need to refer you to psychiatry through [facility]. Joe Calloway MD [Primary Care Provider, Internal Medicine] - 1 Week Discharge Medications: New buprenorphine-naloxone [Suboxone] 4-1 mg Film 1 film sublingual DAILY@1500,2100 14 Days Qty: 28 0RF Rx Instructions: this dose is in addition to 16/4mg daily hydroxyzine HCl 50 mg Tablet 50 mg PO Q6H PRN (Reason: mild anxiety) 30 Days Qty: 60 0RF levetiracetam 500 mg Tablet 500 mg PO BID 14 Days Qty: 28 1RF gabapentin 600 mg Tablet 600 mg PO TID 14 Days Qty: 42 1RF Continued atorvastatin 40 mg Tablet 40 mg PO DAILY buprenorphine-naloxone tablet 2 tab PO DAILY Rx Instructions: 8-2mg strength ibuprofen 400 mg tablet 600 mg PO TID PRN (Reason: fever or pain) melatonin 5 mg powder 5 mg PO BEDTIME PRN (Reason: Insomnia) acetaminophen [Tylenol Extra Strength] 500 mg tablet 1,000 mg PO Q6H PRN (Reason: fever or pain) Qty: 20 0RF Discontinued levetiracetam 500 mg tablet 500 mg PO BID gabapentin 600 MG capsule 600 mg PO TID Discharge Orders: Discharge Order (Routine); Ordered 08/27/25 Ordered By: Jarod Vera Diet: Regular diet Activity on Discharge: As tolerated Stand Alone Forms: Patient Portal Discharge page, Community Support Print Language: Bel[place]an Care Plan Goals: Maintain mood and safe behaviors Take medications as prescribed Continue to pursue sobriety Practice coping skills Continue with outpatient providers and reach out to them as needed Health Concerns: Mood stability and behaviors Seizure disorder Chronic Neuropathic pain Elevated Cholesterol Plan of Treatment: Follow up with your PCP, psychiatric provider and other outpatient providers regarding above concerns Take medications as prescribed Assessment: Risk assessment at time of discharge:? Patient was interviewed prior to discharge and found to be fully oriented and without any SI or HI. Patient has improved insight and judgment and wants to continue treatment. Patient is not in imminent risk of harm to self or others and has a safety plan that includes pre senting to the closest ER or calling 911 if feeling unsafe.? Patient has been observed closely by nursing and unit staff throughout admission; patient has not engaged in any behaviors that suggest dangerousness to self or others and has demonstrated appropriate behaviors and impulse control Substance abuse treatment and risks discussed with patient who at this time patient declines MAT or help with outpt treatment options including programs; instead patient is choosing to work out sobriety on own Discharge Date/Time: 08/27/25 12:40
== END 2025-08-27 12:40 | disposition home or self-care (01) | DRG 755 ==
PROVIDERS: Nurse Practitioner Psychiatric/Mental Health; Admitting Provider Psychiatry & Neurology Psychiatry; PCP Internal Medicine; Visit Provider Psychiatry & Neurology Psychiatry
DX: F43.25 Adjustment disorder with mixed disturbance of emotions and conduct (principal); G40.909 Epilepsy, unspecified, not intractable, without status epilepticus; R45.851 Suicidal ideations; F11.20 Opioid dependence, uncomplicated; I10 Essential (primary) hypertension; E78.5 Hyperlipidemia, unspecified; M54.30 Sciatica, unspecified side; G89.29 Other chronic pain; F17.210 Nicotine dependence, cigarettes, uncomplicated; Z71.6 Tobacco abuse counseling; Z59.02 Unsheltered homelessness; Z79.899 Other long term (current) drug therapy
CPT/HCPCS: 36415; 80053; 80061; 80177; 82607; 83036; 84439; 84443

== ENCOUNTER → 2025-08-21 20:35 | Outpatient (BNV) | payer OTHER, SELFPAY | PROVIDERS: Admitting Provider Psychiatry & Neurology Psychiatry; PCP Internal Medicine; Visit Provider Nurse Practitioner Psychiatric/Mental Health | DX: F33.2 Major depressive disorder, recurrent severe without psychotic features (principal); M54.9 Dorsalgia, unspecified; G89.29 Other chronic pain; G40.909 Epilepsy, unspecified, not intractable, without status epilepticus; I10 Essential (primary) hypertension; T50.901A Poisoning by unspecified drugs, medicaments and biological substances, accidental (unintentional), initial encounter; F43.25 Adjustment disorder with mixed disturbance of emotions and conduct | CPT/HCPCS: 99499 ==

== ENCOUNTER → 2025-08-21 20:35 | Outpatient (BNV) | payer OTHER, SELFPAY | PROVIDERS: Admitting Provider Psychiatry & Neurology Psychiatry; PCP Internal Medicine; Visit Provider Nurse Practitioner Family | DX: G40.909 Epilepsy, unspecified, not intractable, without status epilepticus (principal); M54.40 Lumbago with sciatica, unspecified side; Z86.13 Personal history of malaria | CPT/HCPCS: 99221 ==